=== PATIENT | male | born 1955 | race Caucasian/White ===

== ENCOUNTER 2016-05-15 13:05 | Observation (INO) | payer MEDICARE ==
[~2016-05-15] VITALS: Ht 172.7 cm; Wt 88.6 kg
[~2016-05-15 13:05] MED LIST: ALPR0.5T9 PO; ATEN25TA7 PO; LACL30 PO; LOR75 PO; Promethazine Inj 25 MG in Dextrose 5%-Pha MIX 50 ML IV PRN; QUET300T2 PO; SERXR300 PO; VITAMIN D PO
[2016-05-15 13:19] VITALS: BP 155/103; PULSE 133; RESP 24; O2SAT 97
--- NOTE | 2016-05-15 13:29 | ED.REPORT ---
HPI-Headache Date of Service May 15, 2016 ED Provider: Terence Ortiz DO 61 year old male presents to the ER via EMS complaining of 4 days of severe headache. Associated symptoms include "hot flashes", chills, nausea, vomiting, diarrhea, mild cough, and epigastric discomfort. Patient denies photophobia. Two weeks ago he had all of his teeth pulled, and reports residual mouth pain from the procedure. He regularly takes prescribed narcotics for chronic back pain, but recently ran out because he increased his dose after his dental procedure. Typically he has "a beer or two" daily, but reports that he has refrained from drinking for the past three days. Nursing Notes Stated Complaint: HEADACHE 4 DAYS Chief Complaint: Headache Nursing Notes Reviewed: Yes Allergies: Coded Allergies: No Known Allergies (Verified , 04/21/11) Scheduled ([Vitamin D]) 50,000 PO QW Atenolol-Expunged Drug, Do Not Renew! (Atenolol-Expunged Drug, Do Not Renew!) 25 Mg Tablet 25 MG PO DAILY pt unsure of dose/will bring in on adm. Hydrocod/APAP-Expunged, Do Not Renew! (VICODIN 7.5/300-Expunged Drug, Do Not Renew) 1 Ea Tablet 1 EA PO Q6 Take 1/2 tablet every 6 hours as needed for pain. Lactulose-Expunged Drug, Do Not Renew! (Cephalac-Expunged Drug, Do Not Renew!) 20 Gm/30 Ml Syrup 15 ML PO BID Take 15mL by mouth twice daily. QUEtiapine-Expunged Drug, Do Not Renew! (SEROquel-Expunged Drug, Do Not Renew!) 300 Mg Tablet 300 MG PO DAILY Quetiapine-Expunged Drug, Do Not Renew! (Seroquel XR-Expunged Drug, Do Not Renew !) 300 Mg Tab.sr.24h 300 MG PO DAILY Take 1/2 tablet (150mg) by mouth daily. Miscellaneous Medications Alprazolam-Expunged Drug, Do Not Renew! (Alprazolam-Expunged Drug, Do Not Renew! ) 0.5 Mg Tablet 1 MG PO Take 1/2 tablet (0.5mg) by mouth three times daily as needed for anxiety. General Time Seen by MD: 13:26 Chief Complaint Headache Hx Obtained From: Patient Arrived By: Ambulance Sudden in Onset?: No Onset Occurred: 4 days ago Symptom Duration: Since onset Location: : Generalized Quality: Painful Severity: Current: Severe Severity: Maximum: Severe Associated with: Reports: Nausea, Vomiting, Denies: Photophobia Similar Sx Previous: Yes Past Medical History Past Medical History Chronic back pain Headaches Denies: Diabetes mellitus, Hyperlipidemia Past Surgical History Reports: Hip replacement (bilateral) Smoking History Current Every Day Smoker Social History Alcohol Use: 1-3 per day Ambulatory Status Independent Review of Systems Constitutional: Reports: Chills Eyes: Denies: Photophobia Ears / Nose / Throat: Reports: Mouth pain GI: Reports: Abdominal pain, Diarrhea, Nausea, Vomiting Musculoskeletal: Denies: Back pain, Extremity pain, Joint pain, Lumbar pain, Neck pain, Thoracic pain Neurologic: Reports: Headache, Denies: Syncope, Vision change Complete sys rev & neg: except as marked. Respiratory: Reports: Non-productive cough Physical Exam Initial Vital Signs Vital Signs (First) Date Time Temp Pulse Resp B/P Pulse Ox O2 Delivery O2 Flow Rate FiO2 05/15/16 13:19 37.4 133 24 155/103 97 Room Air Initial VS: Reviewed Respiratory: Breath sounds normal, Clear to auscultation, No respiratory distress Abdomen / GI: Soft, Non-tender, No guarding, No rebound, No distention Extremities: Vascular intact, Neuro intact, No swelling, No tenderness Psychiatric: Mood/affect normal, Behavior normal, Normal thought content General/Constitutional: Awake, Alert, Well developed, Well nourished Head / Eyes: Atraumatic, Normocephalic Neck: Supple, No meningismus, Full range of motion, No swelling, Non-tender, No masses Neurologic: Oriented X3, Speech NL, No motor deficits, No sensory deficits Mildly tremulous. Cardiovascular: Regular rhythm, Heart sounds NL, No gallop, No murmurs, No rubs Heart Rate / Rhythm: Positive: Tachycardia Skin: Warm, Intact Color / Condition: Positive: Diaphoresis present Interpretation & Diagnostics Lab Results Interpretation Result Diagram: 05/15/16 1350 05/15/16 1350 Test 05/15/16 13:50 White Blood Count 17.6th/mm3 (3.8-10.1) Red Blood Count 5.43mil/mm3 (4.40-5.80) Hemoglobin 18.3g/dL (13.8-17.2) Hematocrit 52.4% (41.0-50.0) Mean Corpuscular Volume 96.5fL (81-100) Mean Corpuscular Hemoglobin 33.7pg (27.0-35.0) Mean Corpuscular Hemoglobin Concent 34.9% (32.0-37.0) Red Cell Distribution Width 13.1% (12.3-15.4) Platelet Count 335bil/L (150-400) Neutrophils (%) (Auto) 66.4% (40-74) Lymphocytes (%) (Auto) 22.5% (14-46) Monocytes (%) (Auto) 9.4% (4-12) Eosinophils (%) (Auto) 0.7% (0-5) Basophils (%) (Auto) 0.7% (0-3) Erythrocyte Sedimentation Rate 9mm/hr (0-30) Sodium Level 131mEq/L (134-144) Potassium Level 4.0mEq/L (3.5-5.2) Chloride Level 89mEq/L (97-108) Carbon Dioxide Level 21mmol/L (18-29) Blood Urea Nitrogen 14mg/dL (6-24) Creatinine 0.75mg/dL (0.76-1.27) Estimat Glomerular Filtration Rate 113mL/min (>59) Glucose Level 120mg/dL (60-99) Calcium Level 9.6mg/dL (8.5-10.1) Magnesium Level 2.4mg/dL (1.6-2.6) Total Bilirubin 0.8mg/dL (0.0-1.2) Aspartate Amino Transf (AST/SGOT) 37U/L (0-50) Alanine Aminotransferase (ALT/SGPT) 24U/L (0-44) Alkaline Phosphatase 67U/L (25-160) Troponin T < 0.010ug/L (0.0-0.011) Total Protein 8.8g/dL (6.4-8.4) Albumin 4.6g/dL (3.4-5.0) Lipase 18U/L (13-60) ECG Interpretation ECG Interpretation: Sinus tachycardia, rate 135 Time: 13:52 Interpreted by: ED physician X-Ray Chest Interpretation Chest Xray Interpretation: IMPRESSION: Appearance of increased vascularity, possibly software sales representative of edema. Dictated by: Georgette Koroma M.D. on 05/15/2016 at 14:13 Approved by: Georgette Koroma M.D. on 05/15/2016 at 14:13 View: Portable, 1 view Interpretation / Wet Read by: Interpret - Radiologist CT Head Interpretation IMPRESSION: 1. No acute intracranial abnormality. 2. Small region of encephalomalacia redemonstrated in the inferior left frontal lobe likely related to prior trauma. Dictated by: Lan Almanzar M.D. on 05/15/2016 at 15:09 Approved by: Lan Almanzar M.D. on 05/15/2016 at 15:13 Study: Head CT no contrast Interpretation / Wet Read by: Interpret - Radiologist Re-Eval/Medical Decision Med Decision/Clinical Course The patient appears septic and unclear etiology. Will need further delineation. Head CT obtained for headache. Care transferred to Rajiv Dyer Discharge & Departure Shift Change Sign-Out Patient Care Transferred: Yes Discussed Complaint(s): Yes Discharge Condition All VS Reviewed: Yes Condition: Stable Referrals: Kaushal Lee MD (PCP) Conner Cabrera MD (Family) Care Transferred to: Dr. Deyr Care Transferred at: 15:09 Inna Attestation Portions of this note were transcribed by Chary Celis. I, Dr. Ortiz, personally performed the history, physical exam and medical decision-making; I reviewed and confirmed the accuracy of the information in the transcribed note. Signed by: Inna Guerrier, 05/15/2016 and 15:18 copies to: Conner Cabrera MD; Kaushal Lee MD, Timothy S DO May 15, 2016 13:29 CHARY CELIS May 15, 2016 13:53
[2016-05-15] MEDS ORDERED: 0.9% Sodium Chloride 1,000 ML IV SCH ×3 (13:50→23:41)
[2016-05-15 14:04] LABS: Mean Corpuscular Volume 96.5 fL (81-100)
[2016-05-15 14:09] LABS: BASOPHILS % (AUTO) 0.7 % (0-3); EOSINOPHILS % (AUTO) 0.7 % (0-5); MONOCYTES % (AUTO) 9.4 % (4-12); Mean Corpuscular Hemoglobin 33.7 pg (27.0-35.0); NEUTROPHILS % (AUTO) 66.4 % (40-74); Platelet Count 335 bil/L (150-400)
--- NOTE | 2016-05-15 14:15 | DRSVH ---
PROCEDURE: X-RAY CHEST ONE VIEW, PORTABLE ([id number]) INDICATIONS: CP TECHNIQUE: One view of the chest was acquired. COMPARISON: [facility], , CHEST 1VW (PORTABLE), 04/22/2011, 6:26. FINDINGS: Surgical changes and devices: None. Lungs and pleura: There is a mild appearance of increased pulmonary vascularity. Mediastinum: Mediastinal contours appear normal. Heart size is normal. Bones and chest wall: No suspicious bony lesions. Overlying soft tissues appear unremarkable. IMPRESSION: Appearance of increased vascularity, possibly architectural representative of edema. Dictated by: Georgette Koroma M.D. on 05/15/2016 at 14:13 Approved by: Georgette Koroma M.D. on 05/15/2016 at 14:13
[2016-05-15 14:34] LABS: Magnesium 2.4 mg/dL (1.6-2.6)
[2016-05-15 14:50] VITALS: BP 140/99; PULSE 122; RESP 17; O2SAT 96
[2016-05-15 14:53] LABS: TROPONIN T < 0.010 ug/L (0.0-0.011)
--- NOTE | 2016-05-15 15:14 | DRSVH ---
PROCEDURE: CT BRAIN WITHOUT CONTRAST ([id number]) INDICATIONS: headache TECHNIQUE: Noncontrast 4.5 mm thick angled axial sections acquired from the foramen magnum to the vertex, with c oronal reformats. COMPARISON: [facility], CT, BRAIN W/O CONTRAST, 04/21/2011, 14:58. FINDINGS: Image quality: Excellent. CSF spaces: Basal cisterns are patent. No extra-axial fluid collections. There is mild cerebral vo lume loss with prominence of the ventricles and sulci. Brain: No intracranial hemorrhage, mass, or mass effect. There is a small region of encephalomalaci a in the inferior left frontal lobe redemonstrated likely representing sequelae of prior trauma. Mil d periventricular white matter hypodensities compatible with mild chronic small vessel ischemic story es. Skull and face: Calvarium and visualized facial bones are intact, without suspicious lesions. Sinuses: Visualized sinuses and mastoids are clear. IMPRESSION: 1. No acute intracranial abnormality. 2. Small region of encephalomalacia redemonstrated in the inferior left frontal lobe likely related to prior trauma. Dictated by: Lan Almanzar M.D. on 05/15/2016 at 15:09 Approved by: Lan Almanzar M.D. on 05/15/2016 at 15:13
[2016-05-15] MEDS ORDERED: Morphine ER 100 mg (MS Contin) Tablet PO ONE (15:20)
[2016-05-15 15:25] LABS: INR 1.01 ratio
[2016-05-15] MEDS ORDERED: Morphine ER 15 mg (MS Contin) Tablet PO ONE (15:40)
[2016-05-15] MEDS ORDERED: Promethazine 12.5 mg/50 mL-NS 12.5 MG in IV Premix 1 EACH IV ONE (15:55)
[2016-05-15] MEDS ORDERED: 0.9% Sodium Chloride 1,000 ML IV ONE (15:55)
[2016-05-15 16:46] VITALS: BP 156/95; PULSE 114; RESP 14
[2016-05-15] MEDS ORDERED: Bupivacaine-MPF 0.5% 30 mL Inj ONE (16:46)
[2016-05-15] MEDS ORDERED: cefTRIAXone Inj 2,000 MG in Dextrose 5% Minibag Plus 50 ML IV ONE (19:10)
[2016-05-15 19:24] VITALS: BP 136/82; PULSE 119; RESP 14; O2SAT 95
--- NOTE | 2016-05-15 19:24 | DRSVH ---
PROCEDURE: X-RAY LUMBAR PUNCTURE ([id number]) INDICATIONS: HEADACHE TECHNIQUE: The indications, alternatives, benefits, risks, and complications were explained to the patient. Elda liz informed consent was obtained and placed in the chart. The patient was placed in a prone positi on on the fluoroscopy table, and a level was chosen for percutaneous access under fluoroscopic guidan ce. The site was prepped and draped in a sterile fashion. After local anaesthetic, a spinal needle was then used to enter the intrathecal space, with return of cerebrospinal fluid. After obtaining sufficient fluid, the needle was then withdrawn, and a bandage applied to the punctur e site. FINDINGS: Puncture level: L5 Needle: Spinal needle. Opening pressure: Not requested. CSF volume and description: 14 cc bloody Medications: 1% lidocaine for anaesthesia. Complications: None Laboratories: As ordered by referring clinician. IMPRESSION: Successful fluoroscopically guided lumbar puncture. Dictated by: Georgette Koroma M.D. on 05/15/2016 at 19:22 Approved by: Georgette Koroma M.D. on 05/15/2016 at 19:23
[2016-05-15 20:55] LABS: APPEARANCE,CSF HAZY (CLEAR); COLOR,CSF PINK (COLORLESS); WHITE BLOOD CELL,CSF 0 /mm3 (0-5)
[2016-05-15] MEDS ORDERED: Promethazine Inj 25 MG in Dextrose 5%-Pha MIX 50 ML IV ONE (22:50)
[2016-05-15] MEDS ORDERED: Famotidine Inj 20 MG in IV Premix 1 EACH IV ONE (22:50)
[2016-05-15 23:18] VITALS: BP 134/69; PULSE 109; RESP 19; O2SAT 96
[2016-05-15] MEDS ORDERED: Promethazine Inj 25 MG in Dextrose 5%-Pha MIX 50 ML IV PRN (23:45)
[2016-05-15] MEDS ORDERED: Ondansetron 2 mg/mL 2 mL Inj IVPUSH PRN ×2 (23:45)
[2016-05-15] MEDS ORDERED: Alum-Mag Hydrox-Simeth 30 mL Suspension PO PRN (23:45)
[2016-05-16] VITALS (7 sets, daily range): BP systolic 110–138; BP diastolic 76–89; PULSE 80–112; RESP 14–18; O2SAT 93–97
[2016-05-16] MEDS ORDERED: bupropion PO (00:27)
[2016-05-16] MEDS ORDERED: mirtazapine PO (00:29)
[2016-05-16] MEDS ORDERED: QUET200T PO (00:30)
[2016-05-16] MEDS ORDERED: OXYC5TAB72 PO (00:31)
[2016-05-16] MEDS ORDERED: morphine PO (00:32)
--- NOTE | 2016-05-16 00:33 | NUR ---
Med Rec Patient poor historian. Verified pharmacy is still [facility] in [place] and entered as much information as patient able to recall. Sending fax to pharmacy for updated list in morning. Confirmed no longer taking Alprazolam/Atenolol/Lactulose. Unsure of dose for Bupropion/Mirtazapine. Verified Seroquel went from 300mg to 200mg.
--- NOTE | 2016-05-16 00:36 | NUR ---
Admit to room 3008 with Intractable Headache/Nausea. VS 153/68, 93% O2 on RA. Pain 10/10 on arrival to floor. Oriented to room and poc on whiteboard. Bedalarm and no-slip socks on for safety.
--- NOTE | 2016-05-16 02:13 | NUR ---
Pain reported as 10/10 on transfer to floor, however appears to be asleep and snoring after admin of 975mg Acetaminophen.
--- NOTE | 2016-05-16 03:16 | PCM.HPMED ---
Subjective Date of Service May 16, 2016 Primary Provider: Admitting Physician: Natalie Gibson DO Primary Care Physician: Bijan Attending Physician: Natalie Gibson DO Admit Status: From the Emergency Department Chief Complaint: Severe Headache pain for past 4 days History of Present Illness: This is a 61 Y/O M with hx of chronic frontal headaches, and chronic back pain on morphine 15 mg time release 3 times a day, and Percocet 5-325 mg every 4 hours, who presented to the ED with complaint of 4 days of severe headache, associated with "hot flashes", sweats, nausea, vomiting X 12 in the past 3 days , diarrhea, mild cough (patient is a smoker). Two weeks ago he had all of his teeth pulled and now is edentulous. He reports residual mouth pain from the procedure. Patient stated he increased his daily dose of opiate medication to help with the dental pain, and has since run out 4 days or so ago. Patient states that this headache is different than his prior headache history in that is much more severe. Patient states however that the headache is located in the same area frontal region as his prior headaches have been. Describes pain as 10 out of 10 at its worst and sharp. When asked patient states that he believes is at the [facility]. Patient denies fever, chills, constipation, dysuria, hematuria, hematochezia, abdominal pain, sore throat, stuffiness. In the ED: Patient had lumbar puncture which showed hazy appearing cerebral spinal fluid and can color likely traumatic tap, [address] RBCs, glucose 72, protein 91. Patient received IV Tylenol 975 mg once, IV diazepam 5 mg, IV Midazolam 2 mg, IV lorazepam 1 mg, Roxicodone 5 mg by mouth once, MS Contin 15 mg by mouth once , promethazine IV once, and ceftriaxone 2 g once, Seroquel 200 mg once by mouth , and Benadryl 25 mg once IV. Temperature 37.4, pulse 133, blood pressure 155/103, respirations 24, 97% on room air Repeat vital signs: Temperature 36.7, pulse 112, blood pressure 118/78, respiratory rate 16, 95% room air. Hemogram: Showed white blood cell count 17.6, hemoglobin 18.3, hematocrit 52.4, platelets 335, neutrophils percent 66.4. Chemistry panel: Sodium 131, potassium 4.0, chloride 89, CO2 21, creatinine 0.75 , glucose 120, lactic acid 2.0, troponin 0.010, otherwise normal chemistry panel PT/INR 10.8/1.01, Patient had cerebral spinal fluid viral PCR panel that returned all negative. Flu swab was negative for influenza A/B CT brain showed no acute intracranial abnormality, small region of encephalomalacia re-demonstrated in the inferior left frontal lobe likely related to prior trauma. Chest x-ray: Appearance of increased vascularity possibly outside sales representative of edema Review of Systems: A comprehensive review of systems was conducted and was negative except as mentioned in history of present illness. Allergies Coded Allergies: No Known Allergies (Verified , 04/21/11) Home Medications Patient's med rec does not match what patient states he is taking. Will need to verify in the morning patient's appropriate medications. We will hold all medications until verified by pharmacy. Morphine 15 mg time release twice a day Percocet 5/325 mg every 4 hours PMH Chronic back pain Headaches Surgical History Recently had all of his teeth pulled Hip replacement (bilateral) Family History Alzheimer's disease, mom, aunt, uncle, grandfather Social History Hx Alcohol Use: Yes (1-2 BEER/DAY) Hx Substance Use: No Hx Tobacco Use: Yes (pack per day 25 years) Smoking Status: Current Every Day Smoker Exam Vital Signs Vital Sign - Last Date Time Temp Pulse Resp B/P Pulse Ox O2 Delivery O2 Flow Rate FiO2 05/16/16 00:27 36.7 112 16 118/78 95 Room Air Intake and Output 05/15/16 05/15/16 05/16/16 Cumulative From/Thru 15:00 23:00 07:00 05/15/16 13:19 - 05/16/16 00:27 Intake Total 100 ml 100 ml Output Total 250 ml 250 ml Balance -150 ml -150 ml Intake IV Total 100 ml 100 ml Output Urine Total 250 ml 250 ml # Voids 1 1 Exam General: Patient is alert and oriented 2 with regard to person and time, in no acute distress, sleeping in bed, but arouses and speaking in full sentences when prompted HEENT: NC/AT, eyes, PERRLA, EOMI, pupils dilated, neck, soft supple, no adenopathy, no JVD, no masses, no thyromegaly, throat mucous membranes pink and moist Lungs: CTAB all khan, no wheezes, no rhonchi, no crackles, no adventitious lung sounds, no use of accessory muscles of respiration, good air movement, good respiratory effort. Heart: Tachycardia (regular rhythm, no murmur, S1-S2 present, no rub, no click, no distant heart sounds, Abdomen: Protuberant, soft, nontender, nondistended, bowel sounds hyperactive, no rebound, no guarding, Genitourinary: No CVA tenderness, no suprapubic tenderness. Extremities: pulses rapid, equal and symmetric upper/lower extremity including radial and dorsalis pedis, no edema Neurologic: Grossly neurologically intact, speaking in full sentences, no focal neurological signs. Patient is somnolent Skin: Clammy/diaphoretic/moist Psychiatric: Mood affect are congruent and appropriate. Patient is pleasant Lab and Diagnostics Result Diagram: 05/15/16 1350 05/15/16 1350 X-Rays, CTs and MRIs Date of Service: 05/15/16 1349 PROCEDURE: CT BRAIN WITHOUT CONTRAST ([id number]) INDICATIONS: headache CSF spaces: Basal cisterns are patent. No extra-axial fluid collections. There is mild cerebral volume loss with prominence of the ventricles and sulci. Brain: No intracranial hemorrhage, mass, or mass effect. There is a small region of encephalomalacia in the inferior left frontal lobe redemonstrated likely representing sequelae of prior trauma. Mild periventricular white matter hypodensities compatible with mild chronic small vessel ischemic changes. Skull and face: Calvarium and visualized facial bones are intact, without suspicious lesions. Sinuses: Visualized sinuses and mastoids are clear. IMPRESSION: 1. No acute intracranial abnormality. 2. Small region of encephalomalacia redemonstrated in the inferior left frontal lobe likely related to prior trauma. Dictated by: Lan Almanzar M.D. on 05/15/2016 at 15:09 Approved by: Lan Almanzar M.D. on 05/15/2016 at 15:13 Date of Service: 05/15/16 1342 PROCEDURE: X-RAY CHEST ONE VIEW, PORTABLE ([id number]) INDICATIONS: CP FINDINGS: Surgical changes and devices: None. Lungs and pleura: There is a mild appearance of increased pulmonary vascularity. Mediastinum: Mediastinal contours appear normal. Heart size is normal. Bones and chest wall: No suspicious bony lesions. Overlying soft tissues appear unremarkable. IMPRESSION: Appearance of increased vascularity, possibly outside sales representative of edema. Dictated by: Georgette Koroma M.D. on 05/15/2016 at 14:13 Approved by: Georgette Koroma M.D. on 05/15/2016 at 14:13 Assessment & Plan 61-year-old male with history of chronic headache and chronic back pain on chronic opiate medication who recently ran out of his opiate medication and presented to the ED complaining of 4 days of severe headaches located in the frontal region. Patient was admitted for severe headache and acute withdrawal symptoms. # Acute onset severe intractable headache pain, present on admission, active - Patient received IV Tylenol 975 mg once, IV diazepam 5 mg, IV Midazolam 2 mg, IV lorazepam 1 mg, Roxicodone 5 mg by mouth once, MS Contin 15 mg by mouth once , promethazine IV once, and ceftriaxone 2 g once, Seroquel 200 mg once by mouth , and Benadryl 25 mg once IV. - Patient rates headache pain as 10 over 10 at its worst located frontally and sharp in quality, currently reported as 7/10 while sleeping in bed - Likely rebound headache secondary to opiate withdrawal. - Patient had CT brain which showed no acute process. - IV fluids with normal saline as needed to maintain blood pressures. - IV Tylenol for headache pain - IV lorazepam 0.5-1 mg every 4 hours when necessary - By mouth Roxicodone every 4 hours when necessary # Opioid withdrawal, presently in remission, active - Patient has signs and symptoms of withdrawal including tachycardia, dilated pupils, diaphoresis and hot flashes, rebound headache, nausea, vomiting, diarrhea - IV lorazepam 0.5-1 mg every 4 hours when necessary - By mouth Roxicodone every 4 hours when necessary - We will continue to monitor - Symptomatic relief - Patient's med rec does not match what patient states he is taking. Will need to verify in the morning patient's appropriate medications. We will hold all medications until verified by pharmacy. # Tachycardia, acute, present on admission, active - Heart rate 112 - Likely secondary to opiate withdrawal - SIRS criteria, heart rate 112, her blood cell count 17.6, tachypneic at a rate of 24 on admit - Possible source could be his dental extraction # Leukocytosis, chronicity unknown, present on admission, active - Received received Ceftriaxone 2 g once in the emergency department - Patient had lumbar puncture which showed hazy appearing cerebral spinal fluid and pink color, [address]326 RBCs, glucose 72, protein 91. - CBC 17.6 - Patient had cerebral spinal fluid viral PCR panel that returned all negative. - Flu swab was negative for influenza A/B - CT brain showed no acute intracranial abnormality, small region of encephalomalacia redemonstrated in the inferior left frontal lobe likely related to prior trauma. - Chest x-ray: Appearance of increased vascularity possibly outside sales representative of edema - Possible source of infection could be dental extraction - We will continue to monitor with morning labs CBC CMP - Continue ceftriaxone for now # Hypochloremic hyponatremia, present on admission, active - Sodium 131, chloride 89 - IV fluids with normal saline 100 ml per hour - We will monitor # Hyperglycemia - Glucose 120 - Hemoglobin A1c - We will continue to monitor Chronic problems Chronic back pain - Patient recently ran out of his opioid medication 4 days ago secondary to use increasing his own dose for oral pain after dental procedure. Headaches Disposition: Admitted to in patient service with expected length of stay greater than 2 days, secondary to severity of presenting symptoms, treatment plan, complexity of clinical work up, and risk of adverse events. CODE STATUS: Full code PCP: Dr. Castano [facility] DVT PE prophylaxis: SubQ heparin Q8H Contact: Pain Evaluation: Adequate Pain Control VTE Prophylaxis: Sub-Q Heparin (Unfractionated) Resuscitation Status: CPR: Attempt Resuscitation Attending Statement The patient was seen and examined together with house staff on 05/15/2016 and I agree with the history, exam and plan as outlined in the note above. Giovanny Amaya DO May 16, 2016 02:09 Natalie Gibson DO May 16, 2016 05:45
[2016-05-16] MEDS ORDERED: Acetaminophen IV 1,000 MG in IV Premix 1 EACH IV PRN (03:20)
[2016-05-16] MEDS: 0.9% Sodium Chloride 1,000 ML IV SCH ×2 (03:20→12:57)
[2016-05-16] MEDS ORDERED: Polyethylene Glycol (PEG) 17 Gm Powder PO PRN (03:20)
[2016-05-16] MEDS ORDERED: Ondansetron 2 mg/mL 2 mL Inj IVPUSH PRN (03:20)
[2016-05-16] MEDS ORDERED: Alum-Mag Hydrox-Simeth 30 mL Suspension PO PRN (03:20)
[2016-05-16 06:45] LABS: BASOPHILS % (AUTO) 0.8 % (0-3); EOSINOPHILS % (AUTO) 2.2 % (0-5); MONOCYTES % (AUTO) 11.8 % (4-12); Mean Corpuscular Hemoglobin 34.2 pg (27.0-35.0); Mean Corpuscular Volume 99.3 fL (81-100); NEUTROPHILS % (AUTO) 44.9 % (40-74); Platelet Count 217 bil/L (150-400)
[2016-05-16] MEDS: Heparin 5,000 Unit/mL Inj SUBQ SCH ×2 (07:43→17:27)
--- NOTE | 2016-05-16 10:13 | NUR ---
Social Work: Screening Data: Pt is a 61 y/o male admitted for intractable headache/nausea/tachycardia. Pt's PCP is not listed, pt's insurance is [employer]. EMR reviewed. Pt's readmit score is not listed. Per H&P, pt states he drinks 1-2 beers per day, likely no need for CD assessment. No d/c planning needs anticipated at this time. CHIEF LEARNING OFFICER will continue to follow if needs arise. Assessment: Pt who is independent at baseline. Plan: Pt will d/c home via POV when medically stable. No d/c planning needs anticipated at this time. CHIEF LEARNING OFFICER will continue to follow if needs arise. RICA Quinn
--- NOTE | 2016-05-16 14:51 | NUR ---
LETHA explained and signed, copy given
--- NOTE | 2016-05-16 14:55 | NUR ---
Pain/Anxiety Patient had complaints of ranging from 9-10/10 pain to lower back and to head. Patient was administered Oxycodone 5mg PRN for pain. Patient became anxious and asked for Alprazolam for anxiety. Patient did not have that medication ordered, but did have ativan ordered and was administered 1 mg Ativan for anxiety and was effective.
--- NOTE | 2016-05-16 15:51 | PCM.PNMED ---
Subjective Date of Service May 16, 2016 Subjective Patient notes headache is significantly improved, down nearly 50 or 60% in intensity from admission. His present almost a bandlike distribution above eyes and frontal regions, he had noted previous photosensitivity but that has resolved. Has has blurry vision. Any nausea or vomiting currently, he has not had much of an appetite since its resolution and has a eaten little. Has a chest pain shortness of breath palpitations sweats chills or other complaints at this time Exam Vital Signs Vital Sign - Last Date Time Temp Pulse Resp B/P Pulse Ox O2 Delivery O2 Flow Rate FiO2 05/16/16 10:18 80 05/16/16 10:06 36.7 16 121/80 95 Room Air Intake and Output 05/15/16 05/15/16 05/16/16 Cumulative From/Thru 15:00 23:00 07:00 05/15/16 13:19 - 05/16/16 00:27 Intake Total 100 ml 100 ml Output Total 250 ml 250 ml Balance -150 ml -150 ml IV Total 100 ml 100 ml Output Urine Total 250 ml 250 ml # Voids 1 1 General: Alert, Oriented X3, Cooperative, Mild Distress, Other (mildly disheveled) Eyes: PERRLA, EOMI Mouth: Mucous Membr Moist/[place], Other (no teeth due to multiple extractions) Chest & Lungs: Clear to auscultation & percussion Cardiovascular: Regular Rate/Rhythm, Other (frequent PVCs) Abdomen: Non-tender, Non-distended Extremities: No cyanosis/clubbing/edma bilat Neurological: Grossly Neurologically Intact IVs and Medications Medications Reviewed: Medications were reviewed in detail Lab and Diagnostics Result Diagram: 05/16/1660405/16/16 0605 X-Rays, CTs and MRIs Date of Service: 05/15/16 1349 PROCEDURE: CT BRAIN WITHOUT CONTRAST ([id number]) INDICATIONS: headache CSF spaces: Basal cisterns are patent. No extra-axial fluid collections. There is mild cerebral volume loss with prominence of the ventricles and sulci. Brain: No intracranial hemorrhage, mass, or mass effect. There is a small region of encephalomalacia in the inferior left frontal lobe redemonstrated likely representing sequelae of prior trauma. Mild periventricular white matter hypodensities compatible with mild chronic small vessel ischemic changes. Skull and face: Calvarium and visualized facial bones are intact, without suspicious lesions. Sinuses: Visualized sinuses and mastoids are clear. IMPRESSION: 1. No acute intracranial abnormality. 2. Small region of encephalomalacia redemonstrated in the inferior left frontal lobe likely related to prior trauma. Dictated by: Lan Almanzar M.D. on 05/15/2016 at 15:09 Approved by: Lan Almanzar M.D. on 05/15/2016 at 15:13 Date of Service: 05/15/16 1342 PROCEDURE: X-RAY CHEST ONE VIEW, PORTABLE ([id number]) INDICATIONS: CP FINDINGS: Surgical changes and devices: None. Lungs and pleura: There is a mild appearance of increased pulmonary vascularity. Mediastinum: Mediastinal contours appear normal. Heart size is normal. Bones and chest wall: No suspicious bony lesions. Overlying soft tissues appear unremarkable. IMPRESSION: Appearance of increased vascularity, possibly employment program representative of edema. Dictated by: Georgette Koroma M.D. on 05/15/2016 at 14:13 Approved by: Georgette Koroma M.D. on 05/15/2016 at 14:13 Assessment & Plan 61-year-old male with history of chronic headache and chronic back pain on chronic opiate medication who recently ran out of his opiate medication and presented to the ED complaining of 4 days of severe headaches located in the frontal region. Patient was admitted for severe headache and acute withdrawal symptoms. # Acute onset severe intractable headache pain, present on admission, active - Patient received IV Tylenol 975 mg once, IV diazepam 5 mg, IV Midazolam 2 mg, IV lorazepam 1 mg, Roxicodone 5 mg by mouth once, MS Contin 15 mg by mouth once , promethazine IV once, and ceftriaxone 2 g once, Seroquel 200 mg once by mouth , and Benadryl 25 mg once IV. - Patient rates headache pain as 10 over 10 at its worst located frontally and sharp in quality, currently demonstrating significant improvement - Likely rebound headache secondary to opiate withdrawal. _ Recent prescribing records reviewed, the patient is taking opiates inappropriately he does seem to have been prescribed the stated doses of MS Contin as well as oxycodone over the past several months by primary care doctor which does confirm history. - Patient had CT brain which showed no acute process. - IV fluids with normal saline as needed to maintain blood pressures. - IV Tylenol for headache pain - IV lorazepam 0.5-1 mg every 4 hours when necessary - By mouth Roxicodone every 4 hours when necessary, in addition to MS Contin started now to twice a day dosing instead of 3 times a day as he had been taking previously. # Opioid withdrawal, presently in remission, active - Patient has signs and symptoms of withdrawal including tachycardia, dilated pupils, diaphoresis and hot flashes, rebound headache, nausea, vomiting, diarrhea - IV lorazepam 0.5-1 mg every 4 hours when necessary - By mouth Roxicodone every 4 hours when necessary - We will continue to monitor - Symptomatic relief # Tachycardia, acute, present on admission, active - Heart rate 112, rate improved some averaging around 100 bpm during my examination. - Likely secondary to opiate withdrawal vs pain. # Leukocytosis, chronicity unknown, present on admission, active - Received received Ceftriaxone 2 g once in the emergency department - Patient had lumbar puncture which showed hazy appearing cerebral spinal fluid and pink color, [address] RBCs, glucose 72, protein 91. - CBC 17.6 - Patient had cerebral spinal fluid viral PCR panel that returned all negative. - Flu swab was negative for influenza A/B - CT brain showed no acute intracranial abnormality, small region of encephalomalacia redemonstrated in the inferior left frontal lobe likely related to prior trauma. - Chest x-ray: Appearance of increased vascularity possibly employment program representative of edema - Possible source of infection could be dental extraction - We will continue to monitor with morning labs CBC CMP - Continue ceftriaxone for now, plan to discontinue with negative blood cultures if no other evidence of infection is demonstrated # Hypochloremic hyponatremia, present on admission, active - Sodium 131, chloride 89 - IV fluids with normal saline 100 ml per hour - We will monitor # Hyperglycemia - Glucose 120 - Hemoglobin A1c - We will continue to monitor Pain Evaluation: Adequate Pain Control VTE Prophylaxis: Sub-Q Heparin (Unfractionated) Resuscitation Status: CPR: Attempt Resuscitation Time spent 30 minutes Giovanny Mixon DO May 16, 2016 15:51
[2016-05-16] MEDS ORDERED: cefTRIAXone Inj 2,000 MG in Dextrose 5% Minibag Plus 50 ML IV SCH (20:00)
[2016-05-16] MEDS: Morphine ER 15 mg (MS Contin) Tablet PO SCH (20:08)
[2016-05-16] MEDS ORDERED: TIZA2CAP9 PO (22:04)
[2016-05-16] MEDS ORDERED: TIZA2TAB3 PO (22:04)
[2016-05-16] MEDS ORDERED: TAMS0.4C98 PO (22:04)
[2016-05-16] MEDS ORDERED: PRAZ2CAP2 PO (22:04)
[2016-05-16] MEDS ORDERED: ONDA-53 PO ×2 (22:04)
[2016-05-17] MEDS: 0.9% Sodium Chloride 1,000 ML IV SCH ×2 (00:21→09:20)
[2016-05-17] MEDS: Heparin 5,000 Unit/mL Inj SUBQ SCH ×2 (00:21→08:30)
--- NOTE | 2016-05-17 04:19 | NUR ---
O2 Saturation Continuous pulse oximetry intermittent desaturation to mid 80's during night. Instructed to cough and deep breath. However placed on 1L O2 when this was not effective. Addendum: 05/17/16 at 0422 by JOE WALLACE Now maintaining 95% O2
[2016-05-17 05:41] LABS: BASOPHILS % (AUTO) 1.4 % (0-3); EOSINOPHILS % (AUTO) 3.4 % (0-5); MONOCYTES % (AUTO) 11.3 % (4-12); Mean Corpuscular Hemoglobin 33.6 pg (27.0-35.0); Mean Corpuscular Volume 99.5 fL (81-100); NEUTROPHILS % (AUTO) 43.7 % (40-74); Platelet Count 213 bil/L (150-400)
[2016-05-17 05:43] VITALS: BP 136/78; PULSE 93; RESP 18; O2SAT 98
[2016-05-17] MEDS: Morphine ER 15 mg (MS Contin) Tablet PO SCH (08:30)
[2016-05-17] MEDS ORDERED: MORP-32 PO (10:20)
[2016-05-17] MEDS ORDERED: OXYC5TAB72 PO (10:20)
--- NOTE | 2016-05-17 10:25 | PCM.DIMED ---
Discharge Instructions Date of Service May 17, 2016 Dates of Hospitalization May 15, 2016 at 23:15 Discharge Diagnosis Discharge Diagnosis # Acute onset severe intractable headache pain, present on admission,Resolved # Opioid withdrawal, presently in remission, Resolved # Tachycardia, acute, present on admission, Resolved # Leukocytosis, chronicity unknown, present on admission, Resolved # Hypochloremic hyponatremia, present on admission, Resolved # Hyperglycemia; # Nocturnal hypoxia/ Possible Sleep Apnea. Present on discharge, further evaluation needed. Diet No restrictions Activity No restrictions Call your provider Fever or Chills, Shortness of breath, Chest pain Patient Instructions Follow-up plan Rene Castano in 1 week for refill of controlled medications. Follow-up with PCP in: 1 week Giovanny Mixon DO May 17, 2016 10:25
[2016-05-17 10:44] VITALS: BP 142/83; PULSE 87; RESP 20; O2SAT 95
--- NOTE | 2016-05-17 11:44 | NUR ---
Discharge Patient given discharge orders. Patient given medication list with written and verbal instruction when next dose is due. Patient IV removed fully intact and asymptomatic. Patient given hard copy of prescriptions. Patient given follow up care information. Patient reminded to leave with all personal belongings. Patient waiting for case management to talk with him about transportation home. Addendum: 05/17/16 at 1518 by VIANNEY OSBORN RN Aristides was called and will meet patient at main entrance at 1134.
--- NOTE | 2016-05-17 14:04 | PCM.PNMED ---
Subjective Date of Service May 17, 2016 Subjective Patient is feeling much improved today since presentation, slept well overnight , much back to his old self. Dental pain for which she had taken an excessive amount of his opiates causing to run out prematurely, as reduced and is now well controlled on home dosing of long and short acting medications. No other acute complaints at this time, he may be ready for discharge home but does not have a ride. Exam Vital Signs Vital Sign - Last Date Time Temp Pulse Resp B/P Pulse Ox O2 Delivery O2 Flow Rate FiO2 05/17/16 10:44 36.8 87 20 142/83 95 Room Air Intake and Output 05/16/16 05/16/16 05/17/16 Cumulative From/Thru 15:00 23:00 07:00 05/15/16 13:19 - 05/17/16 06:54 Intake Total 1036 ml 1028 ml 1763 ml 3927 ml Output Total 250 ml Balance 1036 ml 1028 ml 1763 ml 3677 ml Intake Oral 210 ml 518 ml 736 ml 1464 ml IV Total 826 ml 510 ml 1027 ml 2463 ml Output Urine Total 250 ml # Voids 2 2 2 7 # Bowel Movements 0 0 Exam General: Alert, Oriented X3, Cooperative, Mild Distress, Other (mildly disheveled) Eyes: PERRLA, EOMI Mouth: Mucous MembrANES Moist/[place], Other (no teeth due to multiple extractions ) Chest & Lungs: Clear to auscultation & percussion Cardiovascular: Regular Rate/Rhythm, Other (frequent PVCs) Abdomen: Non-tender, Non-distended Extremities: No cyanosis/clubbing/edema bilat Neurological: Grossly Neurologically Intact IVs and Medications Medications Reviewed: Medications were reviewed in detail Lab and Diagnostics Result Diagram: 05/17/1651905/17/16519 X-Rays, CTs and MRIs Date of Service: 05/15/16 9379 PROCEDURE: CT BRAIN WITHOUT CONTRAST ([id number]) INDICATIONS: headache CSF spaces: Basal cisterns are patent. No extra-axial fluid collections. There is mild cerebral volume loss with prominence of the ventricles and sulci. Brain: No intracranial hemorrhage, mass, or mass effect. There is a small region of encephalomalacia in the inferior left frontal lobe redemonstrated likely representing sequelae of prior trauma. Mild periventricular white matter hypodensities compatible with mild chronic small vessel ischemic changes. Skull and face: Calvarium and visualized facial bones are intact, without suspicious lesions. Sinuses: Visualized sinuses and mastoids are clear. IMPRESSION: 1. No acute intracranial abnormality. 2. Small region of encephalomalacia redemonstrated in the inferior left frontal lobe likely related to prior trauma. Dictated by: Lan Almanzar M.D. on 05/15/2016 at 15:09 Approved by: Lan Almanzar M.D. on 05/15/2016 at 15:13 Date of Service: 05/15/16 1342 PROCEDURE: X-RAY CHEST ONE VIEW, PORTABLE ([id number]) INDICATIONS: CP FINDINGS: Surgical changes and devices: None. Lungs and pleura: There is a mild appearance of increased pulmonary vascularity. Mediastinum: Mediastinal contours appear normal. Heart size is normal. Bones and chest wall: No suspicious bony lesions. Overlying soft tissues appear unremarkable. IMPRESSION: Appearance of increased vascularity, possibly business office representative of edema. Dictated by: Georgette Koroma M.D. on 05/15/2016 at 14:13 Approved by: Georgette Koroma M.D. on 05/15/2016 at 14:13 Assessment & Plan 61-year-old male with history of chronic headache and chronic back pain on chronic opiate medication who recently ran out of his opiate medication and presented to the ED complaining of 4 days of severe headaches located in the frontal region. Patient was admitted for severe headache and acute withdrawal symptoms. # Acute onset severe intractable headache pain, present on admission, resolved - Patient received IV Tylenol 975 mg once, IV diazepam 5 mg, IV Midazolam 2 mg, IV lorazepam 1 mg, Roxicodone 5 mg by mouth once, MS Contin 15 mg by mouth once , promethazine IV once, and ceftriaxone 2 g once, Seroquel 200 mg once by mouth , and Benadryl 25 mg once IV. - Patient rates headache pain as 10 over 10 at its worst located frontally and sharp in quality, currently demonstrating significant improvement - Likely rebound headache secondary to opiate withdrawal. _ Recent prescribing records reviewed, the patient is taking opiates inappropriately he does seem to have been prescribed the stated doses of MS Contin as well as oxycodone over the past several months by primary care doctor which does confirm history. - Patient had CT brain which showed no acute process. - IV fluids with normal saline as needed to maintain blood pressures. - IV Tylenol for headache pain - IV lorazepam 0.5-1 mg every 4 hours when necessary - By mouth Roxicodone every 4 hours when necessary, in addition to MS Contin started now to twice a day dosing after confirming dosing provided by outpatient doctor. # Opioid withdrawal, presently in remission, active - Patient has signs and symptoms of withdrawal including tachycardia, dilated pupils, diaphoresis and hot flashes, rebound headache, nausea, vomiting, diarrhea - IV lorazepam 0.5-1 mg every 4 hours when necessary, though does not appear needed any more given her response to resumption of chronic opiate therapy. - By mouth Roxicodone every 4 hours when necessary, in addition to restarting long-acting opiate - We will continue to monitor # Tachycardia, acute, present on admission, active - Heart rate 112, rate improved some averaging around 100 bpm during my examination. - Likely secondary to opiate withdrawal vs pain. # Leukocytosis, chronicity unknown, present on admission, active - Received received Ceftriaxone 2 g once in the emergency department - Patient had lumbar puncture which showed hazy appearing cerebral spinal fluid and pink color, [address] RBCs, glucose 72, protein 91. - CBC 17.6 - Patient had cerebral spinal fluid viral PCR panel that returned all negative. - Flu swab was negative for influenza A/B - CT brain showed no acute intracranial abnormality, small region of encephalomalacia redemonstrated in the inferior left frontal lobe likely related to prior trauma. - Chest x-ray: Appearance of increased vascularity possibly business office representative of edema - Possible source of infection could be dental extraction - We will continue to monitor with morning labs CBC CMP - Continue ceftriaxone for now, plan to discontinue with negative blood cultures if no other evidence of infection is demonstrated # Hypochloremic hyponatremia, present on admission, active - Sodium 131, chloride 89 - IV fluids with normal saline 100 ml per hour - We will monitor # Hyperglycemia - Glucose 120 - Hemoglobin A1c - We will continue to monitor Disposition: Patient would be stable for home discharge today however transportation is an issue, given his recent stabilization 1 further day of observation in hospital is not unreasonable. Discharge home tomorrow with short course of opiates to bridge until he can follow-up with primary care doctor, likely discontinuation of antibiotics with negative blood cultures. Pain Evaluation: Adequate Pain Control VTE Prophylaxis: Sub-Q Heparin (Unfractionated) VTE Mechanical Devices: Intermittant Pneumatic CD Resuscitation Status: CPR: Attempt Resuscitation Time spent 30 minute Giovanny Mixon DO May 17, 2016 14:04
[2016-05-17 14:30] VITALS: BP 145/98; PULSE 97; RESP 20; O2SAT 95
--- NOTE | 2016-05-17 15:18 | NUR ---
Social Work: Initial Assessment / Discharge Data: Pt is a 61 y/o male admitted for intractable headache/nausea/tachycardia. Pt's PCP is Dr Gibson. Pt's insurance is [employer]. EMR reviewed. Pt readmit score is 2, low. MARKING ROOM SUPERVISOR met with pt at bedside, role explained. Pt states that he lives on [address] in a single story home where he uses a walker at baseline. Pt has no hx of HH or SNF, no LTC or VA benefits and is not a caregiver. Pt accepted AD/DPOA information, he does not have one currently. D/C orders are in. Pt states he has no way to get home today. MARKING ROOM SUPERVISOR encouraged pt to call anyone he can think of for this, pt states he does not have anyone to call. MARKING ROOM SUPERVISOR told pt she could call a cab for him, pt states that he does not have money for this and does not have a credit card. Pt states he typically uses the [employer] bus but they do not go to [place] on Sundays. MARKING ROOM SUPERVISOR confirmed this on the [employer] website. Pt does not have Medicaid for possible medicaid transportation. MARKING ROOM SUPERVISOR received permission by MARKING ROOM SUPERVISOR restaurant shift supervisor for hospital to pay for pt's cab ride home. MARKING ROOM SUPERVISOR called [employer] and set up transportation for 3:45pm. MARKING ROOM SUPERVISOR notified RN. No further d/c planning needs at this time. MARKING ROOM SUPERVISOR will continue to follow if needs arise. Assessment: Pt who is independent at baseline. Plan: Pt will d/c home via taxi, [email or web address] [phone], at 3:45pm. No further d/c planning needs at this time. MARKING ROOM SUPERVISOR will continue to follow if needs arise. RICA Quinn Addendum: 05/17/16 at 1525 by VIKY CARDOSO Amended: Links added.
--- NOTE | 2016-05-17 18:56 | PCM.DC.MED ---
Discharge Summary Date of Service May 17, 2016 Dates of Hospitalization Date of Hospital Admission May 15, 2016 at 23:15 Date of Discharge: May 17, 2016 Providers: Admitting Physician: Natalie Gibson DO Primary Care Physician: Nopjelena Attending Physician: Natalie Gibson DO Diagnosis at Time of Discharge Diagnosis at Time of Discharge # Acute onset severe intractable headache pain, present on admission,Resolved # Opioid withdrawal, presently in remission, Resolved # Tachycardia, acute, present on admission, Resolved # Leukocytosis, chronicity unknown, present on admission, Resolved # Hypochloremic hyponatremia, present on admission, Resolved # Hyperglycemia; # Nocturnal hypoxia/ Possible Sleep Apnea. Present on discharge, further evaluation needed. Procedures XRay, CTs & MRIs Date of Service: 05/15/16 1349 PROCEDURE: CT BRAIN WITHOUT CONTRAST ([id number]) INDICATIONS: headache CSF spaces: Basal cisterns are patent. No extra-axial fluid collections. There is mild cerebral volume loss with prominence of the ventricles and sulci. Brain: No intracranial hemorrhage, mass, or mass effect. There is a small region of encephalomalacia in the inferior left frontal lobe redemonstrated likely representing sequelae of prior trauma. Mild periventricular white matter hypodensities compatible with mild chronic small vessel ischemic changes. Skull and face: Calvarium and visualized facial bones are intact, without suspicious lesions. Sinuses: Visualized sinuses and mastoids are clear. IMPRESSION: 1. No acute intracranial abnormality. 2. Small region of encephalomalacia redemonstrated in the inferior left frontal lobe likely related to prior trauma. Dictated by: Lan Almanzar M.D. on 05/15/2016 at 15:09 Approved by: Lan Almanzar M.D. on 05/15/2016 at 15:13 Date of Service: 05/15/16 1342 PROCEDURE: X-RAY CHEST ONE VIEW, PORTABLE ([id number]) INDICATIONS: CP FINDINGS: Surgical changes and devices: None. Lungs and pleura: There is a mild appearance of increased pulmonary vascularity. Mediastinum: Mediastinal contours appear normal. Heart size is normal. Bones and chest wall: No suspicious bony lesions. Overlying soft tissues appear unremarkable. IMPRESSION: Appearance of increased vascularity, possibly commercial sales representative of edema. Dictated by: Georgette Koroma M.D. on 05/15/2016 at 14:13 Approved by: Georgette Koroma M.D. on 05/15/2016 at 14:13 Brief History As per HPI by Dr. Amaya, "This is a 61 Y/O M with hx of chronic frontal headaches, and chronic back pain on morphine 15 mg time release 3 times a day, and Percocet 5-325 mg every 4 hours, who presented to the ED with complaint of 4 days of severe headache, associated with "hot flashes", sweats, nausea, vomiting X 12 in the past 3 days , diarrhea, mild cough (patient is a smoker). Two weeks ago he had all of his teeth pulled and now is edentulous. He reports residual mouth pain from the procedure. Patient stated he increased his daily dose of opiate medication to help with the dental pain, and has since run out 4 days or so ago. Patient states that this headache is different than his prior headache history in that is much more severe. Patient states however that the headache is located in the same area frontal region as his prior headaches have been. Describes pain as 10 out of 10 at its worst and sharp. When asked patient states that he believes is at the [facility]. Patient denies fever, chills, constipation, dysuria, hematuria, hematochezia, abdominal pain, sore throat, stuffiness. In the ED: Patient had lumbar puncture which showed hazy appearing cerebral spinal fluid and can color likely traumatic tap, [address]93 RBCs, glucose 72, protein 91. Patient received IV Tylenol 975 mg once, IV diazepam 5 mg, IV Midazolam 2 mg, IV lorazepam 1 mg, Roxicodone 5 mg by mouth once, MS Contin 15 mg by mouth once , promethazine IV once, and ceftriaxone 2 g once, Seroquel 200 mg once by mouth , and Benadryl 25 mg once IV. Temperature 37.4, pulse 133, blood pressure 155/103, respirations 24, 97% on room air Repeat vital signs: Temperature 36.7, pulse 112, blood pressure 118/78, respiratory rate 16, 95% room air. Hemogram: Showed white blood cell count 17.6, hemoglobin 18.3, hematocrit 52.4, platelets 335, neutrophils percent 66.4. Chemistry panel: Sodium 131, potassium 4.0, chloride 89, CO2 21, creatinine 0.75 , glucose 120, lactic acid 2.0, troponin 0.010, otherwise normal chemistry panel PT/INR 10.8/1.01, Patient had cerebral spinal fluid viral PCR panel that returned all negative. Flu swab was negative for influenza A/B CT brain showed no acute intracranial abnormality, small region of encephalomalacia re-demonstrated in the inferior left frontal lobe likely related to prior trauma. Chest x-ray: Appearance of increased vascularity possibly commercial sales representative of edema" Hospital Course 61-year-old male with history of chronic headache and chronic back pain on chronic opiate medication who recently ran out of his opiate medication and presented to the ED complaining of 4 days of severe headaches located in the frontal region. Patient was admitted for severe headache and acute withdrawal symptoms. # Acute onset severe intractable headache pain, present on admission, resolved - Patient received IV Tylenol 975 mg once, IV diazepam 5 mg, IV Midazolam 2 mg, IV lorazepam 1 mg, Roxicodone 5 mg by mouth once, MS Contin 15 mg by mouth once , promethazine IV once, and ceftriaxone 2 g once, Seroquel 200 mg once by mouth , and Benadryl 25 mg once IV. - Patient rates headache pain as 10 over 10 at its worst located frontally and sharp in quality, currently demonstrating significant improvement - Likely rebound headache secondary to opiate withdrawal. _ Recent prescribing records reviewed, the patient is taking opiates inappropriately he does seem to have been prescribed the stated doses of MS Contin as well as oxycodone over the past several months by primary care doctor which does confirm history. - Patient had CT brain which showed no acute process. - IV fluids with normal saline as needed to maintain blood pressures. - IV Tylenol for headache pain - IV lorazepam 0.5-1 mg every 4 hours when necessary By mouth Roxicodone every 4 hours when necessary, in addition to MS Contin started now to twice a day dosing after confirming dosing provided by outpatient doctor. Discharged with short course of opiate based pain medications with plan to FU with PCP for refill later this week. # Opioid withdrawal, presently in remission, active - Patient had signs and symptoms of withdrawal including tachycardia, dilated pupils, diaphoresis and hot flashes, rebound headache, nausea, vomiting, diarrhea - IV lorazepam 0.5-1 mg every 4 hours when necessary, though does not appear needed any more given her response to resumption of chronic opiate therapy. By mouth Roxicodone every 4 hours when necessary, in addition to restarting long -acting opiate # Tachycardia, acute, present on admission, active - Heart rate 112, rate improved some averaging around 100 bpm during my examination. - Likely secondary to opiate withdrawal vs pain. - Hemodynamically stable at time of discharge. # Leukocytosis, chronicity unknown, present on admission, active - Received received Ceftriaxone 2 g once in the emergency department - Patient had lumbar puncture which showed hazy appearing cerebral spinal fluid and pink color, 29428 RBCs, glucose 72, protein 91. - CBC 17.6 - Patient had cerebral spinal fluid viral PCR panel that returned all negative. - Flu swab was negative for influenza A/B - CT brain showed no acute intracranial abnormality, small region of encephalomalacia redemonstrated in the inferior left frontal lobe likely related to prior trauma. - Chest x-ray: Appearance of increased vascularity possibly commercial sales representative of edema - Possible source of infection could be dental extraction Negative blood cultures if no other evidence of infection is demonstrated , antibiotics discontinued on discharge. # Hypochloremic hyponatremia, present on admission, resolved on discharge. # Hyperglycemia; improved. Exam Vital Signs (Last) Date Time Temp Pulse Resp B/P Pulse Ox O2 Delivery O2 Flow Rate FiO2 05/17/16 14:30 36.8 97 20 145/98 95 Room Air Exam General: Alert, Oriented X3, Cooperative, Mild Distress, Other (mildly disheveled) Eyes: PERRLA, EOMI Mouth: Mucous MembrANES Moist/[place], Other (no teeth due to multiple extractions ) Chest & Lungs: Clear to auscultation & percussion Cardiovascular: Regular Rate/Rhythm, Other (frequent PVCs) Abdomen: Non-tender, Non-distended Extremities: No cyanosis/clubbing/edema bilat Neurological: Grossly Neurologically Intact Test 05/15/16 13:50 05/15/16 19:28 05/16/16 06:05 05/17/16 05:20 Erythrocyte Sedimentation Rate 9mm/hr (0-30) Prothrombin Time 10.8sec (8.1-12.5) Prothromb Time International Ratio 1.01ratio Activated Partial Thromboplast Time 28.8sec (22.8-33.0) Lactic Acid Level 2.0mmol/L (0.4-2.0) Magnesium Level 2.4mg/dL (1.6-2.6) Troponin T < 0.010ug/L (0.0-0.011) Lipase 18U/L (13-60) Hold Strange Top Tube Received (Received) CSF Appearance Hazy (CLEAR) CSF Color [place] (COLORLESS) CSF WBC 0/mm3 (0-5) CSF RBC 74025/mm3 CSF Mononuclear WBCs % CSF Polynuclear WBCs % CSF Other Cells CSF Glucose 72mg/dL (45-90) CSF Total Protein 91mg/dL (15-45) Hemoglobin A1c 5.6% (4.8-5.6) Total Bilirubin 0.6mg/dL (0.0-1.2) Aspartate Amino Transf (AST/SGOT) 27U/L (0-50) Alanine Aminotransferase (ALT/SGPT) 17U/L (0-44) Alkaline Phosphatase 50U/L (25-160) Total Protein 6.3g/dL (6.4-8.4) Albumin 3.3g/dL (3.4-5.0) White Blood Count 7.9th/mm3 (3.8-10.1) Red Blood Count 3.99mil/mm3 (4.40-5.80) Hemoglobin 13.4g/dL (13.8-17.2) Hematocrit 39.7% (41.0-50.0) Mean Corpuscular Volume 99.5fL (81-100) Mean Corpuscular Hemoglobin 33.6pg (27.0-35.0) Mean Corpuscular Hemoglobin Concent 33.8% (32.0-37.0) Red Cell Distribution Width 12.7% (12.3-15.4) Platelet Count 213bil/L (150-400) Neutrophils (%) (Auto) 43.7% (40-74) Lymphocytes (%) (Auto) 39.9% (14-46) Monocytes (%) (Auto) 11.3% (4-12) Eosinophils (%) (Auto) 3.4% (0-5) Basophils (%) (Auto) 1.4% (0-3) Sodium Level 133mEq/L (134-144) Potassium Level 3.8mEq/L (3.5-5.2) Chloride Level 98mEq/L (97-108) Carbon Dioxide Level 20mmol/L (18-29) Blood Urea Nitrogen 15mg/dL (6-24) Creatinine 0.64mg/dL (0.76-1.27) Estimat Glomerular Filtration Rate 136mL/min (>59) Glucose Level 104mg/dL (60-99) Calcium Level 8.1mg/dL (8.5-10.1) Discharge Medications Discharge Medications ([mirtazapine]) 10 MG PO HS (Reported) Morphine Sulfate ER (Morphine Sulfate ER) 15 Mg Tablet 15 MG PO BID Prescribed by: GIOVANNY MIXON DO Prazosin (Prazosin) 2 Mg Capsule 2 MG PO HS (Reported) Quetiapine Fumarate (Seroquel) 200 Mg Tablet 200 MG PO HS (Reported) Tamsulosin (Flomax) 0.4 Mg Capsule 0.4 MG PO HS (Reported) As needed Ondansetron (Ondansetron) 4 Mg Tablet 4 MG PO PRN For Nausea (Reported) Ondansetron (Ondansetron) 4 Mg Tablet 4 MG PO Q6 hrs PRN PRN For Nausea ( Reported) Tizanidine (Tizanidine) 2 Mg Tablet 1 TAB PO HS PRN PRN muscle spasms (Reported ) oxyCODONE (oxyCODONE) 5 Mg Tablet 5 MG PO Q4H PRN PRN For Pain Prescribed by: GIOVANNY MIXON DO Miscellaneous Medications ([bupropion]) (Reported) ([morphine]) 15 MG PO (Reported) Followup Plan Disposition: Home Follow-up plan Rene Castano in 1 week for refill of controlled medications. Discharge Diet: No restrictions Discharge Activity: No restrictions Follow-up with PCP in: 1 week Time spent 40 minutes Giovanny Mixon DO May 17, 2016 18:56
== END 2016-05-17 13:40 | disposition home or self-care (01) ==
LOC: EDBD 13:05 → SED 13:05 → MPC 23:15
PROVIDERS: ADMIT Internal Medicine; ATTEND Internal Medicine
DX: R51 Headache (principal); F11.23 Opioid dependence with withdrawal; T40.2X5A Adverse effect of other opioids, initial encounter; R00.0 Tachycardia, unspecified; D72.829 Elevated white blood cell count, unspecified; E87.1 Hypo-osmolality and hyponatremia; R73.9 Hyperglycemia, unspecified; G47.34 Idiopathic sleep related nonobstructive alveolar hypoventilation; R11.2 Nausea with vomiting, unspecified; D75.1 Secondary polycythemia; E86.0 Dehydration; M54.9 Dorsalgia, unspecified; F17.210 Nicotine dependence, cigarettes, uncomplicated; Z98.818 Other dental procedure status; Z96.643 Presence of artificial hip joint, bilateral
CPT/HCPCS: 36415; 62270; 70450; 71010; 77003; 80048; 80053; 82945; 83036; 83605; 83690; 83735; 84155; 84484; 85025; 85610; 85651; 85730; 87040; 87070; 87150; 87205; 87496; 87498; 87529; 87532; 87798; 87804; 89051; 93005; 96365; 96366; 96375; 96376; 99285; G0378; J0696; J1200; J1644; J2060; J2250; J2550; J3360; J3490; J7030

== ENCOUNTER 2016-06-07 18:35 | Inpatient (IN) | payer MEDICARE ==
[~2016-06-07] VITALS: Ht 172.7 cm; Wt 91.3 kg
[~2016-06-07 18:35] MED LIST changes: -ALPR0.5T9 PO; -ATEN25TA7 PO; -LACL30 PO; -LOR75 PO; +MORP-32 PO; +ONDA-53 PO; +OXYC5TAB72 PO; +PRAZ2CAP2 PO; -Promethazine Inj 25 MG in Dextrose 5%-Pha MIX 50 ML IV PRN; +QUET200T PO; -QUET300T2 PO; -SERXR300 PO; +TAMS0.4C98 PO; +TIZA2TAB3 PO; -VITAMIN D PO; +bupropion PO; +mirtazapine PO; +morphine PO
[2016-06-07 18:56] VITALS: BP 132/57; PULSE 122; RESP 12; O2SAT 98
--- NOTE | 2016-06-07 19:07 | ED.REPORT ---
HPI-Chest Pain 40 and Over Date of Service Jun 07, 2016 ED Provider: Boaz Villalba MD Pt is a 61 y/o male w/ a hx of chronic back pain and headaches w/ narcotic dependence presenting to the ED via EMS with multiple vague complaints onset 2 days ago. He c/o CP, back pain, nausea, vomiting, night sweats, COOL, cough, sore throat, abdominal pain. He denies diarrhea, SOB, lightheadedness, dizziness. He drinks 1 beer/day and he smokes. Nursing Notes Stated Complaint: CHEST PAIN Chief Complaint: Chest Pain Nursing Notes Reviewed: Yes Allergies: Coded Allergies: No Known Allergies (Verified , 04/21/11) Scheduled ([bupropion]) Unknown Strength Unknown Dose PO BID ([mirtazapine]) 10 MG PO HS Morphine Sulfate ER (Morphine Sulfate ER) 15 Mg Tablet 15 MG PO BID Quetiapine Fumarate (Seroquel) 200 Mg Tablet 200 MG PO HS Tamsulosin (Flomax) 0.4 Mg Capsule 0.4 MG PO HS Scheduled PRN Ondansetron (Ondansetron) 4 Mg Tablet 4 MG PO QID PRN PRN For Nausea Tizanidine (Tizanidine) 2 Mg Tablet 1 TAB PO HS PRN PRN muscle spasms oxyCODONE (oxyCODONE) 5 Mg Tablet 5 MG PO Q4H PRN PRN For Pain General Time Seen by MD: 19:05 Chief Complaint Other (N/V) Hx Obtained From: Patient, EMS Arrived By: Ambulance Sudden in Onset?: No Onset Occurred: 2 days ago Symptom Duration: Since onset Location: : Substernal Quality: Painful Severity: Current: Mild Severity: Maximum: Moderate Recent Healthcare: Recent doctor visit, Recent hospitalization Past Medical History Past Medical History Chronic back pain Chronic headaches Past Surgical History Reports: Hip replacement Smoking History Current Every Day Smoker Social History Alcohol Use: 1-3 per day Ambulatory Status Independent Review of Systems Constitutional: Denies: Chills, Fever Respiratory: Reports: Non-productive cough, Denies: Shortness of breath GI: Reports: Abdominal pain, Nausea, Vomiting, Denies: Diarrhea Musculoskeletal: Reports: Back pain, Denies: Extremity pain Skin: Reports Diaphoresis, Denies Bruising Neurologic: Denies: Dizziness, Lightheaded Complete sys rev & neg: except as marked. Ears / Nose / Throat: Reports: Sore throat, Denies: Throat swelling Physical Exam Initial Vital Signs Vital Signs (First) Date Time Temp Pulse Resp B/P Pulse Ox O2 Delivery O2 Flow Rate FiO2 06/07/16 18:56 37.5 122 12 132/57 98 Room Air Initial VS: Reviewed, Vital signs abnormal Head / Eyes: Atraumatic, Normocephalic, PERRL ENT: Mucous membranes moist, Conjunctiva normal, No scleral icterus Neck: Supple, Full range of motion Extremities: Vascular intact, Neuro intact, No swelling, No tenderness Skin: Warm, Dry, No cyanosis Neurologic: Alert, Oriented, Nonfocal Psychiatric: Mood/affect normal, Behavior normal, Normal thought content General/Constitutional: Awake, Alert, No acute distress, Cooperative, Not toxic appearing Respiratory / Chest: Atraumatic, Breath sounds NL, Breath sounds = bilat, No respiratory distress, No rales, No rhonchi, No wheezing, No retractions, No stridor, No chest tenderness, No chest wall deformity, No crepitus Cardiovascular: Heart rate NL, Regular rhythm, Heart sounds NL, No gallop, No murmurs, No rubs, Cap refill not delayed, Peripheral circulation NL Abdomen: Atraumatic, Soft, No rebound Tenderness/Guarding/Rebound: Positive: Guarding voluntary (mild), Tender epigastric (mod) Interpretation & Diagnostics Interpretation & Diagnostics: US abdomen: Impression: 1. Findings consistent with acute cholecystitis. 2. The common duct is not well-visualized. The visualized portion is borderline dilated for age measuring 6 mm. Interpreted by Darian Smith MD at 2250 Lab Results Interpretation Result Diagram: 06/07/16 1905 06/07/16 190 Test 06/07/16 19:05 06/07/16 21:08 White Blood Count 11.7th/mm3 (3.8-10.1) Red Blood Count 4.72mil/mm3 (4.40-5.80) Hemoglobin 15.7g/dL (13.8-17.2) Hematocrit 46.3% (41.0-50.0) Mean Corpuscular Volume 98.1fL (81-100) Mean Corpuscular Hemoglobin 33.3pg (27.0-35.0) Mean Corpuscular Hemoglobin Concent 33.9% (32.0-37.0) Red Cell Distribution Width 13.5% (12.3-15.4) Platelet Count 283bil/L (150-400) Neutrophils (%) (Auto) 67.8% (40-74) Lymphocytes (%) (Auto) 19.7% (14-46) Monocytes (%) (Auto) 9.6% (4-12) Eosinophils (%) (Auto) 2.0% (0-5) Basophils (%) (Auto) 0.6% (0-3) D-Dimer 1.2mg/L (<0.50) Sodium Level 134mEq/L (134-144) Potassium Level 4.0mEq/L (3.5-5.2) Chloride Level 95mEq/L (97-108) Carbon Dioxide Level 19mmol/L (18-29) Blood Urea Nitrogen 11mg/dL (6-24) Creatinine 0.75mg/dL (0.76-1.27) Estimat Glomerular Filtration Rate 113mL/min (>59) Glucose Level 149mg/dL (60-99) Calcium Level 8.6mg/dL (8.5-10.1) Magnesium Level 2.2mg/dL (1.6-2.6) Total Bilirubin 0.6mg/dL (0.0-1.2) Aspartate Amino Transf (AST/SGOT) 19U/L (0-50) Alanine Aminotransferase (ALT/SGPT) 13U/L (0-44) Alkaline Phosphatase 62U/L (25-160) Troponin T < 0.010ug/L (0.0-0.011) Total Protein 7.1g/dL (6.4-8.4) Albumin 3.6g/dL (3.4-5.0) Lipase 12U/L (13-60) Hold Strange Top Tube Received (Received) Urine Color Yellow (YELLOW) Urine Appearance Clear (CLEAR,HAZY) Urine pH 6.0 (5.0-8.0) Urine Specific [place] 1.027 (1.003-1.035) Urine Protein Negativemg/dL (NEG,TRACE) Urine Glucose (UA) Negativemg/dL (NEGATIVE) Urine Ketones Negativemg/dL (NEGATIVE) Urine Occult Blood Negative (NEGATIVE) Urine Nitrite Negative (NEGATIVE) Urine Bilirubin Negative (NEGATIVE) Urine Urobilinogen Normalmg/dL (NORMAL) Urine Leukocyte Esterase Negative (NEGATIVE) Urine RBC 0-2/hpf (0-2) Urine WBC 0-5/hpf (0-5) Urine Epithelial Cells Occasional/hpf (NONE-MOD) Urine Crystals None seen (NONE SEEN) Urine Bacteria Few/hpf (NONE-FEW) Urine Hyaline Casts None/lpf (NONE) Urine Granular Casts None seen (NONE SEEN) Urine Waxy Casts None seen (NONE SEEN) Urine Red Blood Cell Casts None seen (NONE SEEN) Urine White Blood Cell Casts None seen (NONE SEEN) Urine Mucus Present (None Seen) Urine Trichomonas None seen (NONE SEEN) Urine Yeast None (NONE SEEN) Urinalysis Comment None Urine Culture Reflexed Not indicated ECG Interpretation ECG Interpretation: Sinus tachycardia rate 135 Time: 19:23 Interpreted by: ED physician Normal ECG Interpretation: No acute ischemic changes, No change from prior ECGs X-Ray Chest Interpretation Chest Xray Interpretation: IMPRESSION: No acute cardiopulmonary findings. Dictated by: Adelaide De M.D. on 06/07/2016 at 19:19 Approved by: Adelaide De M.D. on 06/07/2016 at 19:19 View: Portable, 1 view Interpretation / Wet Read by: Interpret - Radiologist CT Abd / Pelvis Interpretation IMPRESSION: 1. Gallbladder distention and mild gallbladder wall thickening. These findings may be associated with early acute acalculous cholecystitis. If further characterization is warranted, right upper quadrant ultrasound may be helpful to evaluate the gallbladder wall. 2. Normal appendix. 3. Multilevel wedge compression deformities of the thoracolumbar spine of indeterminate age. Dictated by: Adelaide De M.D. on 06/07/2016 at 21:00 Approved by: Adelaide De M.D. on 06/07/2016 at 21:07 Study type: Abdominal CT IV contrast Interpretation / Wet Read by: Interpret - Radiologist Re-Eval/Medical Decision Med Decision/Clinical Course Acute cholecystitis. Pain poorly controlled. Admitted to general surgeon. Nothing by mouth at midnight. Given Unasyn. Time of Eval: 23:57 Re-Evaluation/Progress Note: Pt rechecked. Informed pt of need for admission for surgical intervention. Pt understands and agrees with plan for admission. All questions addressed. Consultation : Referral / Consult Name: Kasandra Thomas MD Consulted With: Surgeon Call Returned at: 23:56 Lawnmower Repair Mechanic: Will see patient, Agrees with eval, Agrees with plan, Accepts admit Note: Surgery accepts admit. Requests Unisyn. Counseled Regarding: Diagnosis, Lab results, Need for admission Discharge & Departure Primary Impression: Acute cholecystitis Disposition: ADMITTED TO HOSPITAL Discharge Condition All VS Reviewed: Yes Condition: Stable Referrals: Neeraj Pereyra MD (PCP) Scribe Attestation Portions of this note were transcribed by Serge Ruff. I, Dr. Villalba, personally performed the history, physical exam and medical decision-making; I reviewed and confirmed the accuracy of the information in the transcribed note. Signed by Inna Hand, 06/07/16 - 1999 copies to: Neeraj Pereyra MD, Ben M MD Jun 07, 2016 19:07 SERGE RUFF Jun 07, 2016 19:23 SERGE RUFF Jun 07, 2016 19:23
[2016-06-07 19:19] LABS: BASOPHILS % (AUTO) 0.6 % (0-3); MONOCYTES % (AUTO) 9.6 % (4-12); Mean Corpuscular Hemoglobin 33.3 pg (27.0-35.0); Mean Corpuscular Volume 98.1 fL (81-100); NEUTROPHILS % (AUTO) 67.8 % (40-74); Platelet Count 283 bil/L (150-400)
--- NOTE | 2016-06-07 19:21 | DRSVH ---
PROCEDURE: X-RAY CHEST ONE VIEW, PORTABLE ([id number]) INDICATIONS: CHEST PAIN TECHNIQUE: One view of the chest was acquired. COMPARISON: [facility], CR, XR CHEST 1VW (PORTABLE), 05/15/2016, 13:51. FINDINGS: Surgical changes and devices: None. Lungs and pleura: No pleural effusions or pneumothorax. Lungs are clear. Mediastinum: Mediastinal contours appear normal. Heart size is normal. Bones and chest wall: No suspicious bony lesions. Overlying soft tissues appear unremarkable. IMPRESSION: No acute cardiopulmonary findings. Dictated by: Adelaide De M.D. on 06/07/2016 at 19:19 Approved by: Adelaide De M.D. on 06/07/2016 at 19:19
[2016-06-07] MEDS ORDERED: 0.9% Sodium Chloride 1,000 ML IV ONE ×2 (19:37→22:40)
[2016-06-07] MEDS ORDERED: LidocaineVisc 2%:Antacid 1:1 10 mL Syringe PO ONE (19:40)
[2016-06-07 19:52] LABS: TROPONIN T < 0.010 ug/L (0.0-0.011)
[2016-06-07] MEDS: Ondansetron 2 mg/mL 2 mL Inj IVPUSH PRN (19:58)
[2016-06-07 20:23] LABS: Magnesium 2.2 mg/dL (1.6-2.6)
[2016-06-07] MEDS ORDERED: Alum-Mag Hydrox-Simeth 30 mL Suspension PO ONE (20:30)
--- NOTE | 2016-06-07 21:08 | DRSVH ---
PROCEDURE: CT ABDOMEN AND PELVIS WITH CONTRAST ([id number]) INDICATIONS: epigastric pain TECHNIQUE: After the administration of intravenous contrast, 5 mm thick sections acquired from the diaphragm to the symphysis. 5 mm coronal and sagittal reformats were acquired. For radiation dose reduction, the following was used: automated exposure control, adjustment of mA and/or kV according to patient fletcher rangel. COMPARISON: [facility], MR, LUMBAR SPINE W/O CONTRAST, 01/22/2012, 14:41. FINDINGS: Image quality: Excellent. ABDOMEN: Lung bases: Lung bases are clear. Heart size is normal. Solid organs: Liver and spleen are normal in size and enhancement. The gallbladder is moderately dis tended. There is subtle gallbladder wall thickening and trace pericholecystic fluid. Biliary system i s non dilated. Pancreas enhances normally. No adrenal nodules. Kidneys demonstrate normal size and enhancement, without hydronephrosis. Peritoneum and bowel: Bowel loops demonstrate normal wall thickness and caliber. The appendix is thi n walled and gas filled. No free fluid or air. Nodes and vessels: No retroperitoneal or mesenteric adenopathy by size criteria. Aorta and inferior vena cava are normal in size. There are scattered atheromatous calcifications throughout the aorta and iliac arteries bilaterally. Miscellaneous: No ventral hernias. PELVIS: Genitourinary: Bladder wall thickness is normal. Miscellaneous: No inguinal hernias or adenopathy. Bones: No suspicious bony lesions. There is severe wedge compression deformities at L1-L4. Wedge com pression deformities are also present within the lower portion of the thoracic spine as visualized. T hese have markedly increased in severity when compared with the prior MRI of the lumbar spine dated 1 . No recent studies available to determine the acuity of this finding. IMPRESSION: 1. Gallbladder distention and mild gallbladder wall thickening. These findings may be associated with early acute acalculous cholecystitis. If further characterization is warranted, right upper quadrant ultrasound may be helpful to evaluate the gallbladder wall. 2. Normal appendix. 3. Multilevel wedge compression deformities of the thoracolumbar spine of indeterminate age. Dictated by: Adelaide De M.D. on 06/07/2016 at 21:00 Approved by: Adelaide De M.D. on 06/07/2016 at 21:07
--- NOTE | 2016-06-07 21:12 | DRSVH ---
PROCEDURE: CT ANGIO CHEST PULMONARY EMBOLISM ([id number]) INDICATIONS: cp elevated dimer TECHNIQUE: After the administration of intravenous contrast, 2 mm thick sections acquired from the pulmonary api ritu to the posterior costophrenic angles. 3-dimensional maximum intensity projection (MIP) coronal a nd sagittal reformats were then acquired through the thorax. For radiation dose reduction, the follo wing was used: automated exposure control, adjustment of mA and/or kV according to patient size. COMPARISON: None. FINDINGS: Image quality: Excellent. Pulmonary arteries: Pulmonary arteries are normal in size, and demonstrate no intraluminal filling d efects to suggest central pulmonary embolism. Lungs and pleura: Lungs are clear. No pleural effusions or pneumothorax. Central and peripheral ai rways are patent. Mediastinum: Heart size is normal, without pericardial effusion. No mediastinal or hilar adenopathy . Thoracic aorta is normal in caliber and enhancement. Esophagus is normal in caliber, without hiat al hernia. Bones and chest wall: No suspicious bony lesions. Ribs and thoracic spine appear intact throughout. Thyroid gland is unremarkable. No axillary or supraclavicular adenopathy. Abdomen: Visualized upper abdominal solid organs appear normal in the early arterial phase of enhanc ement. IMPRESSION: 1. No acute pulmonary embolus. Dictated by: Adelaide De M.D. on 06/07/2016 at 21:07 Approved by: Adelaide De M.D. on 06/07/2016 at 21:11
[2016-06-07 21:39] LABS: APPEARANCE,URINE CLEAR (CLEAR,HAZY); COLOR,URINE YELLOW (YELLOW); OCCULT BLOOD,URINE NEGATIVE (NEGATIVE); UROBILINOGEN,URINE NORMAL (NORMAL)
[2016-06-07] MEDS: HYDROmorphone 1 mg/mL Inj IM PRN (23:17)
[2016-06-08] VITALS (13 sets, daily range): BP systolic 128–150; BP diastolic 76–94; PULSE 89–120; RESP 14–18; O2SAT 93–99
[2016-06-08] MEDS ORDERED: Alum-Mag Hydrox-Simeth 30 mL Suspension PO PRN ×2 (00:20→23:45)
[2016-06-08] MEDS ORDERED: Ondansetron 2 mg/mL 2 mL Inj IVPUSH PRN ×3 (00:20→10:05)
[2016-06-08] MEDS: HYDROmorphone 1 mg/mL Inj IM PRN ×5 (00:57→19:43)
[2016-06-08] MEDS ORDERED: Dexamethasone 4 mg/mL Inj ONE (01:00)
[2016-06-08] MEDS ORDERED: Propofol 10,000 mCg/mL 20 mL Inj ONE (01:00)
[2016-06-08] MEDS ORDERED: Ondansetron 2 mg/mL 2 mL Inj ONE (01:00)
[2016-06-08] MEDS ORDERED: LacriLube S.O.P. 3.5 Gm Ophthalmic Ointment ONE (01:00)
[2016-06-08] MEDS ORDERED: fentaNYL-PF 50 mCg/mL 2 mL Inj ONE (01:00)
[2016-06-08] MEDS ORDERED: Lidocaine PF 1% 30 mL Inj ONE (01:00)
[2016-06-08] MEDS ORDERED: Rocuronium 10 mg/mL 5 mL Inj ONE (01:00)
--- NOTE | 2016-06-08 02:05 | HP ---
[address] [address] HISTORY AND PHYSICAL PATIENT: MISTI STEVENS : 1955 MR#: [id number] ADMIT: 06/08/2016 JOB ID: [id number] CHIEF COMPLAINT: A 61-year-old gentleman with acute cholecystitis. Seen in consultation at the request of Boaz Villalba MD. HISTORY OF PRESENT ILLNESS: The patient is a 61-year-old gentleman with chronic pain issues who came in with severe chest and upper abdominal pain. It started over the last couple of days and he was initially worked up for acute cardiac and pulmonary etiology with CT scan, and then a CT abdomen and pelvis which was suggestive of cholecystitis. I was called to take care of him. He has never had anything like this before. He did not know that he had gallstones. He does not remember even having abdominal pain episodes before. OTHER MEDICAL PROBLEMS: 1. Chronic pain. 2. Osteoarthritis. 3. Chronic back pain. 4. Obesity. HOME MEDICATIONS: 1. Morphine 50 mg extended release twice a day. 2. Oxycodone 5 mg as needed. 3. He also reports taking mirtazapine. 4. Seroquel. 5. Tamsulosin. 6. Bupropion. ALLERGIES: No known drug allergies. PRIOR OPERATIONS: Bilateral hip replacement. FAMILY HISTORY: Alzheimer's. SOCIAL HISTORY: He has been smoking for the last 15-20 years, over a pack a day. He does drink alcohol. INVESTIGATIONS: Laboratory from June 07, 2016, WBC 11.7, hemoglobin 15.7, platelet count 283. Creatinine 0.75, glucose 149. Normal liver function studies. Lipase 12. INR 1.2. Chest x-ray, no acute cardiopulmonary findings. CT pulmonary angiogram, no acute pulmonary embolus. CT abdomen and pelvis, gallbladder distention with wall thickening, and a stone seen near the gallbladder, cystic duct junction. Multilevel wedge compression deformities of the thoracolumbar spine. Abdominal ultrasound visualized multiple gallstones in addition to the wall thickening. PHYSICAL EXAM: A 61-year-old male, in mild distress. BMI 30.5. Temperature 37.4, pulse 111, respiratory rate 18, blood pressure 150/94, saturating 97% on room air. Eyes: Normal pupils, conjunctivae. Ears, nose, and throat: Normal external appearance. Neck: No adenopathy. Respiratory: Normal effort, clear to auscultation. Cardiovascular: Regular rate and rhythm. Gastrointestinal: Tender to palpation in the upper abdomen, more on the right upper quadrant. Musculoskeletal: Normal strength. Neurologic: No gross deficits. Psych: Alert, appropriate. ASSESSMENT AND PLAN: Acute cholecystitis. I discussed the pathophysiology and treatment rationale for cholecystitis and recommended laparoscopic cholecystectomy with cholangiogram. I will discuss this case with Dr. Cote, who is on-call today, and hopefully we should be able to take care of him, either me or him, based on what the schedule allows.
--- NOTE | 2016-06-08 02:40 | NUR ---
ADMITTED; from ben at approx. 0130 via gurney to room 1028 with c/o 2 day history of nausea/vomiting/headache/abd pain. Addendum: 06/08/16 at 0242 by MICKI NGUYEN RN See admit screens.
--- NOTE | 2016-06-08 04:12 | NUR ---
PAIN; morphine 4mg iv for c/o 9/10 abd pain plus headache with relief. Pt sleeping on and off. Npo for surgery today. Voiding in the urinal. Pleasant/cooperative. No c/o nausea.
--- NOTE | 2016-06-08 07:13 | NUR ---
REPORT; given to Khari Bey RN. Dr. Thomas in to see pt. Consent signed and witnessed. No belongings with pt to [facility].
--- NOTE | 2016-06-08 07:17 | NUR ---
TO O.R. at this time via yunier.
[2016-06-08] MEDS ORDERED: Lactated Ringer's 500 ML IV PRN (07:26)
[2016-06-08] MEDS ORDERED: Lactated Ringer's 1,000 ML IV SCH (07:26)
--- NOTE | 2016-06-08 07:26 | PCM.HPANE ---
Patient Data Date of Service: Jun 08, 2016 (0720) Surgeon Admitting Provider:Kasandra Thomas MD Attending Provider:Kasandra Thomas MD [facility]ician[facility] Other Provider:Norma Thomas Anesthesia Reason for Visit Acute Cholecyctitis Ht/WT & BMI Height (Feet): 5 Height (Inches): 8.00 Weight (Kilograms): 91.300 Body Mass Index 30.51 Allergies Coded Allergies: No Known Allergies (Verified , 06/08/16) Diabetes History Hx Diabetes?: No MRSA MRSA: No Medications Active Scripts Morphine Sulfate ER 15 Mg [id number] Mg PO BID #10 Prov:Giovanny Mixon DO 05/17/16 oxyCODONE 5 Mg Tablet5 Mg PO Q4H PRN For Pain #20 TABLET Ref 0 Prov:Giovanny Mixon DO 05/17/16 Reported Medications Tizanidine 2 Mg Tablet1 Tab PO HS PRN muscle spasms 05/16/16 Tamsulosin (Flomax)0.4 Mg Capsule0.4 Mg PO HS Ref 0 05/16/16 Ondansetron 4 Mg Tablet4 Mg PO QID PRN For Nausea 05/16/16 Quetiapine Fumarate (Seroquel)200 Mg [id number] Mg PO HS Ref 0 05/16/16 [mirtazapine] No Conflict Check10 Mg PO HS 05/16/16 [bupropion] Unknown Strength No Conflict CheckUnknown Dose PO BID 05/16/16 Discontinued Reported Medications Prazosin 2 Mg Capsule2 Mg PO HS 05/16/16 Ondansetron 4 Mg Tablet4 Mg PO Q6 hrs PRN For Nausea 05/16/16 [morphine] No Conflict Check15 Mg PO 05/16/16 History History of ENT Problems?: Yes HEENT History: Positive for:: Sinus Problem (sinus infection ) Other HEENT Pertinent History: above per "recall" Hx of Heart Problems?: Yes Cardiovascular History: Positive for:: Hypertension (history) Denies:: Congestive Heart Failure Other Cardiac History: above per "recall" Hx of Respiratory Problem?: No Respiratory History: Denies:: Tuberculosis Other Resp Pertinent History: above per "recall" Hx Neurologic Problems?: Yes Neurological History: Positive for:: Headaches (remote history after falling off porch) Other Neurological Pertinent: above per "recall" states uses walker for long distances other sebastian ambulates indep. Hx of GI Problems?: Yes Other GI Pertinent History: above per "recall" Hx of Problems?: No Other Pertinent History: above per "recall" Male Hx: Denies:: Prostate Problems Scrotal Mass Testicular Surgery Hx Musculoskeletal Problems?: Yes Musculoskeletal History: Positive for:: Back Injury (walked off drill press) Joint Replacement (bilat hip) Hx of Psycho/Social Problems?: Yes Psycho Social History: Positive for:: Bipolar Disorder Hx Depression Suicide Attempt (1994) Other Psych Pertinent History: above per "recall" Hx Surgeries?: Yes (Back, bilat hips, cornia transplants) Hx Any Other Health Problems?: Yes History Blood Transfusions: Positive for:: Accept Blood Products? Denies:: Blood Transfusions Hx Diabetes: No Other Pertinent History: above per "recall" Hx Alcohol Use: YesAlcoholic Drinks Per Day: 1-2 beers/dayHx Substance Use: No Smoking Status: Current Every Day Smoker Have You Smoked inLast 12 mo: YesApprox How Many Cigarettes/day: LESS THAN A PACK A DAY Stop/Bang Treated for Sleep Apnea?: No Do You Have a CPAP Machine?: No S-Snoring: Do You Snore Loudly: Yes T-Tired: feel tired, fatigued: Yes O-Obsered: Observed not breath: No P-Blood Pressure: treated: No B- Body Mass Index > 35 kg/m2: No A- Age over 50: Yes N- Neck Large Circumference: No G- Gender Male: Yes OTTO Total Score: 3 OTTO Risk Assessment: Low Risk, <3 Yes Risk Assessment Category Category 1A: Patient has history of documented sleep apnea, and HAS NOT received any narcotic, sedative or anesthesia administration during this stay. Category 1B: Patient has history of documented sleep apnea, and HAS received any narcotic , sedative or anesthesia administration during this stay Category 2: Patient has SUSPECTED Obstructive Sleep Apnea, and HAS received any narcotic , sedative or anesthesia administration during this stay. Category 3: Patient has SUSPECTED Obstructive Sleep Apnea and HAS NOT received narcotic, sedative or anesthesia administration during this stay. Category 4: Outpatient in Procedural Areas with known sleep apnea or who screen positive for High Risk via the STOP/BANG questionnaire. Exam Exam Vital Signs Vital Signs Date Time Temp Pulse Resp B/P Pulse Ox O2 Delivery O2 Flow Rate FiO2 06/08/16 05:39 36.4 95 18 128/76 97 Room Air 06/08/16 01:41 37.2 120 18 135/87 97 Room Air 06/08/16 01:10 37.4 111 18 150/94 97 Room Air 06/08/16 01:00 37.4 111 18 150/94 97 Room Air General Appearance: Alert, Oriented X3, Cooperative HEENT/AIRWAY: MP 2 (edentulous) Lungs: Clear to Auscultation Heart: Exam Unremarkable Meds/Labs/Diagnostics Admission Meds Current Medications Sodium Chloride (Normal Saline) 1,000 ml @ 0 mls/hr Q0M ONCE IV Last administered on 06/07/16 19:57; Start 06/07/16 at 19:37; Stop 06/07/16 at 19:39 ; Status DC Lidocaine HCl (Xylocaine Viscous 2% Soln 15mL) 5 ml OT ONCE PO Last administered on 06/07/16 20:53; Start 06/07/16 at 20:30; Stop 06/07/16 at 20:31 ; Status DC Al Hydrox/Mg Hydrox/ Simethicone 5 ml 5 ml OT ONCE PO Last administered on 20:52; Start 06/07/16 at 20:30; Stop 06/07/16 at 20:31; Status DC Sodium Chloride (Normal Saline) 1,000 ml @ 0 mls/hr Q0M ONCE IV Last administered on 06/07/16 23:17; Start 06/07/16 at 22:40; Stop 06/07/16 at 22:41 ; Status DC Labs Test 06/07/16 19:05 06/07/16 21:08 White Blood Count 11.7th/mm3 (3.8-10.1) Red Blood Count 4.72mil/mm3 (4.40-5.80) Hemoglobin 15.7g/dL (13.8-17.2) Hematocrit 46.3% (41.0-50.0) Mean Corpuscular Volume 98.1fL (81-100) Mean Corpuscular Hemoglobin 33.3pg (27.0-35.0) Mean Corpuscular Hemoglobin Concent 33.9% (32.0-37.0) Red Cell Distribution Width 13.5% (12.3-15.4) Platelet Count 283bil/L (150-400) Neutrophils (%) (Auto) 67.8% (40-74) Lymphocytes (%) (Auto) 19.7% (14-46) Monocytes (%) (Auto) 9.6% (4-12) Eosinophils (%) (Auto) 2.0% (0-5) Basophils (%) (Auto) 0.6% (0-3) D-Dimer 1.2mg/L (<0.50) Sodium Level 134mEq/L (134-144) Potassium Level 4.0mEq/L (3.5-5.2) Chloride Level 95mEq/L (97-108) Carbon Dioxide Level 19mmol/L (18-29) Blood Urea Nitrogen 11mg/dL (6-24) Creatinine 0.75mg/dL (0.76-1.27) Estimat Glomerular Filtration Rate 113mL/min (>59) Glucose Level 149mg/dL (60-99) Calcium Level 8.6mg/dL (8.5-10.1) Magnesium Level 2.2mg/dL (1.6-2.6) Total Bilirubin 0.6mg/dL (0.0-1.2) Aspartate Amino Transf (AST/SGOT) 19U/L (0-50) Alanine Aminotransferase (ALT/SGPT) 13U/L (0-44) Alkaline Phosphatase 62U/L (25-160) Troponin T < 0.010ug/L (0.0-0.011) Total Protein 7.1g/dL (6.4-8.4) Albumin 3.6g/dL (3.4-5.0) Lipase 12U/L (13-60) Hold Strange Top Tube Received (Received) Urine Color Yellow (YELLOW) Urine Appearance Clear (CLEAR,HAZY) Urine pH 6.0 (5.0-8.0) Urine Specific [place] 1.027 (1.003-1.035) Urine Protein Negativemg/dL (NEG,TRACE) Urine Glucose (UA) Negativemg/dL (NEGATIVE) Urine Ketones Negativemg/dL (NEGATIVE) Urine Occult Blood Negative (NEGATIVE) Urine Nitrite Negative (NEGATIVE) Urine Bilirubin Negative (NEGATIVE) Urine Urobilinogen Normalmg/dL (NORMAL) Urine Leukocyte Esterase Negative (NEGATIVE) Urine RBC 0-2/hpf (0-2) Urine WBC 0-5/hpf (0-5) Urine Epithelial Cells Occasional/hpf (NONE-MOD) Urine Crystals None seen (NONE SEEN) Urine Bacteria Few/hpf (NONE-FEW) Urine Hyaline Casts None/lpf (NONE) Urine Granular Casts None seen (NONE SEEN) Urine Waxy Casts None seen (NONE SEEN) Urine Red Blood Cell Casts None seen (NONE SEEN) Urine White Blood Cell Casts None seen (NONE SEEN) Urine Mucus Present (None Seen) Urine Trichomonas None seen (NONE SEEN) Urine Yeast None (NONE SEEN) Urinalysis Comment None Urine Culture Reflexed Not indicated Plan Impression Patient chart reviewed, patient interviewed and anesthestic plan with risks, benefits, and alternatives discussed, and informed consent obtained. ASA Physical Status: ASA2 Mod Systemic Disease Anesthetic Plan: GA Bene/Risks/Altern/Consents: Yes HP Complete Prior to Induction: Yes Evens Shields MD Jun 08, 2016 07:25
[2016-06-08] MEDS ORDERED: HYDROmorphone 1 mg/mL Inj IVPUSH PRN (07:30)
[2016-06-08] MEDS ORDERED: MetoCLOpramide 5 mg/mL 2 mL Inj IVPUSH PRN ×2 (07:30→10:05)
[2016-06-08] MEDS ORDERED: fentaNYL-PF 50 mCg/mL 2 mL Inj IVPUSH PRN (07:30)
[2016-06-08] MEDS ORDERED: Dexamethasone 4 mg/mL Inj IVPUSH PRN (07:30)
[2016-06-08] MEDS ORDERED: Phenylephrine 10,000 mCg/mL Inj IVPUSH PRN (07:30)
[2016-06-08] MEDS ORDERED: Ampicillin-Sulbactam Inj 3,000 MG in 0.9% Sodium Chloride 100 ML IV ONE (07:30)
[2016-06-08] MEDS ORDERED: EPHEDrine Sulfate 50 mg/mL Inj IVPUSH PRN (07:30)
[2016-06-08] MEDS ORDERED: Lactated Ringer's 1,000 ML IV ONE ×2 (07:33→09:08)
[2016-06-08] MEDS ORDERED: Bupivacaine-MPF 0.5% 30 mL Inj INFILTRATE ONE (08:15)
--- NOTE | 2016-06-08 09:26 | DRSVH ---
PROCEDURE: US ABDOMEN, LIMITED ([id number]) INDICATIONS: RUQ TECHNIQUE: Real-time focused scanning was performed of the abdomen, with image documentation. COMPARISON: [facility], CT, CT ANGIO CHEST PE, 06/07/2016, 20:45. FINDINGS: Multiple dependent gallstones and sludge are present. Gallbladder wall thickening measurin g 4.7 mm and there is mild wall edema. Trace pericholecystic fluid and sonographic Neves's sign. N o biliary dilatation. IMPRESSION: Cholelithiasis with gallbladder wall thickening and edema suggesting cholecystitis. Note: These findings are concordant with the preliminary interpretation. Dictated by: Tu PISANO Interpreted: Georgette Koroma MD on 06/08/2016 at 9:25 Transcribed by: BRENDA on 06/08/2016 at 9:26 Approved by: Georgette Koroma M.D. on 06/08/2016 at 16:51
--- NOTE | 2016-06-08 10:04 | PCM.SURGPO ---
Immediate Operative Note Date of Surgery: Jun 08, 2016 Pre Operative Diagnosis Acute Cholecystitis Post Operative Diagnosis Acute Cholecystitis with choledocholithiasis Procedure Laparoscopic Cholecystectomy with Intraoperative Cholangiogram Surgeon and Assistant Film Editor Surgeon: Kasandra Thomas MD Assistants: Ginny Gamboa, BENSON Priest, MS3 Findings Severe cholecystitis, choledocholithiasis on IOC Complications There were no periprocedural complications identified. Surgical Specimen Removed: Yes Specimen sent to Pathology: Yes Anesthetic Administered: GA Grafts, Implants: None Output, Estimated Blood Loss: 20 Blood Admin during surgery: No Attending Statement Compliance Representative listed was medically necessary for the successful completion of the operation Kasandra Thomas MD Jun 08, 2016 10:04
--- NOTE | 2016-06-08 10:08 | DRSVH ---
PROCEDURE: X-RAY OPERATIVE CHOLANGIOGRAM ([id number]) INDICATIONS: CHOLANGIOGRAM COMPARISON: [facility], CT, CT ABD PELVIS W CON, 06/07/2016, 20:45. [facility] al, US, ABDOMEN LTD, 06/07/2016, 20:51. FINDINGS: Biliary ducts: The surgeon injected contrast into the biliary ducts after cannulation of the cystic duct stump. Visualized intra- and extrahepatic bile ducts are normal in caliber, without strictures. Several intraluminal filling defects seen in the distal common bile duct.. No evidence for iatroge gayla ductal injury. Duodenum: Contrast flows promptly through the sphincter of Oddi into the duodenum, which appears nor mal in caliber. IMPRESSION: 1. Distal common bile duct intraluminal filling defect suspicious for retained stones and/or tumefact collins sludge. If indicated ERCP or MRCP could be performed. 2. Extravasation of contrast and cannulation site. Dictated by: Tu PISANO Interpreted: Georgette Koroma MD on 06/08/2016 at 10:07 Transcribed by: BRENDA on 06/08/2016 at 10:08 Approved by: Georgette Koroma M.D. on 06/08/2016 at 16:46
--- NOTE | 2016-06-08 10:15 | PCM.ANEP1 ---
Post Anesthesia Phase 1 PACU Phase 1 Assessment Date of Service: Jun 08, 2016 Vital Signs 37.2, 149/91, 115, 20, 98% Vital Signs Date Time Temp Pulse Resp B/P Pulse Ox O2 Delivery O2 Flow Rate FiO2 06/08/16 05:39 36.4 95 18 128/76 97 Room Air Level of Alertness: Awake, talking CONNOLLY's with Equal Strength: Yes Pain: No Pain Scale Score: 0 Nausea or Vomiting: No Oxygen Delivery: Simple Mask Lungs: Clear to Auscultation Dermatome Level: Full Sensation Summary UNEVENTFUL GA Evens Shields MD Jun 08, 2016 10:15
--- NOTE | 2016-06-08 10:15 | PCM.ANEP2 ---
Post Anesthesia Evaluation ASA/CMS Post Anesthesia VS in Patient's Normal Range?: Yes Resp Stable; Airway Patent?: Yes CV Function & Hydration Stable: Yes Mental Status Recovered?: Yes Pain control Satisfactory?: Yes N/V Control Satisfactory?: Yes Evens Shields MD Jun 08, 2016 10:15
--- NOTE | 2016-06-08 11:10 | NUR ---
Social Work Note: Initial Assessment Attempt Data & Assessment: EMR reviewed. Patient is a 61 year old male admitted on 06/08/2016 for Acute cholecystitis. Pt has [employer] for insurance coverage and goes to [facility] for primary care. Pt lives on [facility]. Nursing Education Consultant attempted to see patient and complete Initial Assessment, but the patient is in surgery. Plan: SW to continue to follow patient and assist with discharge planning needs. Vandana Michael LMSW, ACM
[2016-06-08] MEDS: Dextrose 5% 0.45% NaCl 1,000 ML IV SCH (11:20)
[2016-06-08] MEDS ORDERED: 0.9% Sodium Chloride 250 ML ONE (13:47)
[2016-06-08] MEDS: Ampicillin-Sulbactam Inj 3,000 MG in 0.9% Sodium Chloride 100 ML IV SCH ×2 (13:54→19:49)
[2016-06-08 14:50] LABS: BASOPHILS % (AUTO) 0.3 % (0-3); EOSINOPHILS % (AUTO) 0.1 % (0-5); MONOCYTES % (AUTO) 5.7 % (4-12); Mean Corpuscular Hemoglobin 32.9 pg (27.0-35.0); Mean Corpuscular Volume 100.2 fL (81-100); NEUTROPHILS % (AUTO) 79.9 % (40-74); Platelet Count 248 bil/L (150-400)
--- NOTE | 2016-06-08 16:08 | OP ---
[address] [address] OPERATIVE REPORT PATIENT: MISTI STEVENS : 1955 MR#: [id number] ADMIT: 06/08/2016 JOB ID: [id number] DATE OF SURGERY: 06/08/2016 PREOPERATIVE DIAGNOSIS(ES): Acute cholecystitis. POSTOPERATIVE DIAGNOSIS(ES): Acute cholecystitis with choledocholithiasis. SURGEON: Kasandra Thomas MD. GANG DRILL OPERATOR: CESAR Robert MS3. INDICATIONS: This is a 61-year-old gentleman with chronic pain issues who came in with severe chest and upper abdominal pain that started over the last couple of days. Acute cardiac and pulmonary etiologies were ruled out and CT showed inflamed gallbladder with ultrasound confirming gallstones and cholecystitis. After discussing the risks, benefits, and alternatives, he was brought to the operating room for a laparoscopic cholecystectomy with cholangiogram. PROCEDURE DETAILS: He was placed in supine position. Underwent smooth induction of general anesthesia. Abdomen was prepped and draped in the usual sterile fashion. Surgical time-out was undertaken using safety checklist, and all were in agreement. We entered the abdomen using the supraumbilical incision using open Eugenia technique. Placed a 12 mm port and then placed three 5 mm ports in the upper abdomen, two in the right upper quadrant and one in the epigastrium. The gallbladder was obviously inflamed with omentum stuck to it. I mobilized the omentum off and dissected the triangle of Calot anteriorly and posteriorly. He had some oozing but was able to control the cystic artery with a clip. After dissecting the cystic duct I felt like I did not have enough length mobilized for manipulation, so I actually decided to take the gallbladder down in a top-down fashion and placed an Endoloop around the infundibulum, made a cystic ductotomy, and obtained a cholangiogram. Cholangiogram showed normal anatomy but did show filling defects in the distal common bile duct that I could not clear out despite giving glucagon and intraductal lidocaine. At this point, I decided to go ahead and control the duct with two clips and an Endoloop and divided cystic duct and placed the gallbladder in an EndoCatch bag. I irrigated and suctioned out all fluid from the right upper quadrant, extracted the gallbladder through the umbilical port site, and evacuated the pneumoperitoneum. Closed the umbilical fascia with [id number] 0-Vicryl suture. Skin was closed with 4-0 Monocryl. Steri-Strips and sterile dressing were applied. Patient was recovered from anesthesia and was taken to the recovery room in stable condition.
--- NOTE | 2016-06-08 17:48 | NUR ---
Case Management: LETHA explained to patient at 1740, all questions answered. Signed original placed in chart, copy given to patient. Martina Rojas RN
--- NOTE | 2016-06-08 19:51 | NUR ---
Pain management Pt. having strong pain (9/10) after transfer from recovery. IV morphine administered, but did not seem to be effective. 1 mg dilaudid administered, which pt. reported to help him feel much more comfortable. Pt. reports his pain at 7/10 with treatment of 1 mg dilaudid q2 hours, but pt. is frequently falling asleep, and pt. denying pain being intolerable. Will continue to monitor.
[2016-06-09 01:09] VITALS: BP 152/99; PULSE 93; RESP 19; O2SAT 96
[2016-06-09] MEDS: Dextrose 5% 0.45% NaCl 1,000 ML IV SCH (02:45)
[2016-06-09] MEDS: Ampicillin-Sulbactam Inj 3,000 MG in 0.9% Sodium Chloride 100 ML IV SCH ×3 (03:34→14:30)
[2016-06-09] MEDS: Ondansetron 2 mg/mL 2 mL Inj IVPUSH PRN ×2 (03:40→13:11)
--- NOTE | 2016-06-09 04:17 | NUR ---
Pain/Emotional response Patient has complained of pain q 2hours . Pain medications administered q [address] Cote called for PO meds to be ordered. Oxycodone ordered and administered along with 200mg Motrin. Patient also complained of nausea and ondansetron IVP was administered. Patient started to cry around 0200. Patient stated he felt he could be having a panic attack. Patient stated that the unknown regarding his armand had him bothered to the point of crying. I asked patient if he felt the lack of beer could be causing his anxiety as the patient stated during his assessment that he drinks 1-2 beers every night. Patient denied any dependence on alcohol. Patient reassured and pain medications schedule was written on white board. VSS. Abdomen guarded. Call light within reach. Care continues.
[2016-06-09 06:13] VITALS: BP 152/84; PULSE 104; RESP 18; O2SAT 96
[2016-06-09 07:52] LABS: BASOPHILS % (AUTO) 0.5 % (0-3); EOSINOPHILS % (AUTO) 1.6 % (0-5); MONOCYTES % (AUTO) 12.2 % (4-12); Mean Corpuscular Hemoglobin 32.9 pg (27.0-35.0); Mean Corpuscular Volume 99.5 fL (81-100); Platelet Count 247 bil/L (150-400)
[2016-06-09] MEDS ORDERED: Thiamine Inj 100 MG, Folic Acid Inj 1 MG, Magnesium Sulfate 50% Inj 2 GM, Multivitamins... IV ONE ×5 (08:25)
--- NOTE | 2016-06-09 09:14 | PCM.PNSURG ---
Subjective Date of Service: Jun 09, 2016 Visit Information: Acute Cholecyctitis, Choledocholithiasis Surgery/Surgery Date LAP MARY W/CHOLANGIOGRAMS 06/08/16 Post-Op Day # 1 Date of Admission: Jun 08, 2016 at 00:59 Hospital Day # 2 Subjective: No sleep overnight, inadequate pain control Objective Vital Sign- Last 8 Hours Date Time Temp Pulse Resp B/P Pulse Ox O2 Delivery O2 Flow Rate FiO2 06/09/16 06:13 36.8 104 18 152/84 96 Room Air 06/09/16 01:09 36.9 93 19 152/99 96 Room Air Intake and Output- Last 8 Hour 06/09/16 Cumulative From/Thru 07:00 06/07/16 18:56 - 06/09/16 06:37 Intake Total 1238 ml 4371 ml Output Total 900 ml 1030 ml Balance 338 ml 3341 ml Intake Oral 520 ml 520 ml IV Total 718 ml 3851 ml Output Urine Total 900 ml 1000 ml Estimated Blood Loss 30 ml Abdomen: Soft, Other (dressings dry) Result Diagram: 06/09/16 0630 06/09/16 0630 Assessment & Plan Impression Choledocholithiasis with rising LFTs concerning Problems: Plan ERCP coverage not available at [facility] this week Called Vandana Emanuel Planning transfer for ERCP NPO Continue Unasyn, Pain medications Possible Alcohol withdrawal - Kasandra Christensen MD Jun 09, 2016 09:14
[2016-06-09 09:58] VITALS: PULSE 96
[2016-06-09 10:25] VITALS: BP 145/88; PULSE 105; RESP 18; O2SAT 99
[2016-06-09] MEDS ORDERED: MIRT15TA PO (12:58)
[2016-06-09 13:06] VITALS: BP 153/93; PULSE 93; RESP 18; O2SAT 93
[2016-06-09] MEDS ORDERED: BUSP15TA3 PO (13:24)
[2016-06-09] MEDS ORDERED: MIRT30TA6 PO (13:24)
[2016-06-09] MEDS ORDERED: QUET400T35 PO (13:30)
--- NOTE | 2016-06-09 14:34 | NUR ---
Case Management: IMM given and explained to pt at 14:25. Yuli HELLERRN
--- NOTE | 2016-06-09 16:26 | PCM.DISURG ---
Surgical Discharge Instruction Date of Service Jun 09, 2016 Dates of Hospitalization Date of Hospital Admission Jun 08, 2016 at 00:59 Providers Admitting Physician: Kasandra Thomas MD [facility]: Kasandra Thomas MD Discharge Diagnosis Post Operative diagnosis Acute Cholecystitis with choledocholithiasis s/p Lap Cholecystectomy with cholangiogram Diet Discharge Diet: Other (NPO) Activity Discharge Activity-General: Be up and about Dressing and Incisional Care Dressing Care: Remove outer dressing after 24 hrs Hygiene: May shower Follow Up Plan Follow Up Plan Transferring to [facility] for ERCP Kasandra Thomas MD Jun 09, 2016 16:26
--- NOTE | 2016-06-09 18:26 | DIS ---
[address] [address] DISCHARGE SUMMARY PATIENT: MISTI STEVENS : 1955 MR#: [id number] ADMIT: 06/08/2016 JOB ID: [id number] DIS: 06/09/2016 SUMMARY DIAGNOSIS: Acute cholecystitis and choledocholithiasis. OTHER DIAGNOSES: 1. Obesity. 2. Chronic back pain. 3. Possible alcohol withdrawal. HPI & Hospital course: The patient is a 61-year-old gentleman with chronic pain who came with severe chest and upper abdominal pain. He was initially worked up for acute cardiac and pulmonary etiology with a CT scan and a CT abdomen and pelvis which showed cholecystitis. He then had an ultrasound. His preoperative liver function tests were normal. I performed a laparoscopic cholecystectomy with intraoperative cholangiogram on June 08, 2016 on the same day of admission, at which time, I found choledocholithiasis. I controlled the cystic duct stump with two clips and an Endoloop. I then monitored him overnight with serial liver function tests. The liver function tests on June 09, 2016 showed bilirubin going up to 2.9 from 2.5, prompting me to seek help for ERCP. Because the gastroenterologists were not available here at [facility], I discussed the case with [facility] and talked to the hospitalist, Dr. Mamie Barrera who kindly accepted the request for transfer. His home medications are: 1. Buspirone 30 mg p.o. b.i.d. 2. Mirtazapine 60 mg p.o. every night. 3. Morphine 50 mg p.o. b.i.d. 4. Ondansetron 4 mg four times a day p.r.n. nausea. 5. Oxycodone 5 mg p.o. q.4 h. p.r.n. pain. 6. Quetiapine 200 mg p.o. at midnight. Medications currently in the hospital are: 1. Morphine 1-4 mg IV q.2 h. p.r.n. pain. 2. Unasyn 3000 mg q.6 h. hours. DISCHARGE INSTRUCTIONS: I asked the patient to remove his outer bandage in 24 hours and he is going to stay n.p.o. in anticipation of ERCP to be performed at [facility]. [facility]
--- NOTE | 2016-06-09 19:42 | NUR ---
Transfer Patient was transferred to [facility] for ERCP procedure. Patient transported BLS. Report was called to Lexi at admissions there. Patient with continued pain t/o day medicated with morphine. Patient on CIWA protocal and medicated with valium as indicated.
[2016-06-09] MEDS ORDERED: BusPIRone 15 mg Dividose Tablet PO SCH (20:30)
[2016-06-10] MEDS ORDERED: Multivit-Miner-Folic Acid-Iron Tablet PO SCH (08:30)
[2016-06-10] MEDS ORDERED: Thiamine Inj 100 MG in 0.9% Sodium Chloride 100 ML IV SCH (08:30)
--- NOTE | 2016-06-10 11:25 | PATH ---
SURGICAL PATHOLOGY Attending Physician:Kasandra Thomas MD CASE STATUS: Signed Out PATIENT NAME: MISIT STEVENS PID: [id number] : 1955 DATE COLLECTED:06/08/2016 16:53 SPECIMEN: Gallbladder CLINICAL HISTORY: ACUTE CHOLECYSTITIS 1). GALLBLADDER FINAL DIAGNOSIS: 1.GALLBLADDER: CHOLELITHIASIS WITH ASSOCIATED CHRONIC CHOLECYSTITIS. ICD10 CODE K80.66 GROSS DESCRIPTION: The specimen is received in one formalin filled container labeled with the patient's name, sublabeled "gallbladder" and consists of an opened 9.0 x 4.0 x 2.5 CM gallbladder. The serosa is smooth. The wall is 0.2-0.6 CM in thickness. The mucosa is a dark pink to rodriguez in color. The lumen contains a light yellow ngo to espinal-rodriguez friable material and approximately 10 dark brown-black rough calculi which range in size from 0.2-0.5 CM in greatest dimension. Multiple teleservices representative sections are submitted in 2 cassettes. 06/08/2016 DAC MICRO DESCRIPTION: See diagnosis. ICD-9 CODES: CPT CODES: 1: 88356 Electronically Signed Out Blaze Zazueta MD [facility] [address], [place] [address] Technical component performed at [facility], [facility] [address], [place], [address]
[2016-09-16] MEDS ORDERED: QUET300T PO (10:46)
[2016-09-16] MEDS ORDERED: ATEN25TA PO (10:46)
[2016-09-16] MEDS ORDERED: OMEP20TA86 PO (10:46)
[2016-09-16] MEDS ORDERED: CHOL500050 PO (10:46)
== END 2016-06-09 17:30 | disposition short-term general hospital (02) | DRG 418 ==
LOC: SED 18:35 → OBSVTOIN 06-08 00:59 → OSC 06-08 00:59
PROVIDERS: ADMIT Student in an Organized Health Care Education/Training Program; ATTEND Student in an Organized Health Care Education/Training Program
PROC: BF101ZZ Fluoroscopy of Bile Ducts using Low Osmolar Contrast (ICD-10-PCS; 2016-06-08)
PROC: 0FT44ZZ Resection of Gallbladder, Percutaneous Endoscopic Approach (ICD-10-PCS; principal; 2016-06-08 07:30)
DX: K80.42 Calculus of bile duct with acute cholecystitis without obstruction (principal); F10.239 Alcohol dependence with withdrawal, unspecified; I10 Essential (primary) hypertension; F17.210 Nicotine dependence, cigarettes, uncomplicated; Z96.643 Presence of artificial hip joint, bilateral; G89.29 Other chronic pain; M54.9 Dorsalgia, unspecified; E66.9 Obesity, unspecified; Z68.30 Body mass index [BMI] 30.0-30.9, adult; R94.5 Abnormal results of liver function studies

== ENCOUNTER 2016-10-30 18:20 | Emergency (ER) | payer MEDICARE ==
[~2016-10-30] VITALS: Ht 175.3 cm; Wt 90.9 kg
[~2016-10-30 18:20] MED LIST changes: +ATEN25TA PO; +CHOL500050 PO; -MORP-32 PO; +OMEP20TA86 PO; -ONDA-53 PO; -OXYC5TAB72 PO; -PRAZ2CAP2 PO; -QUET200T PO; +QUET300T PO; +QUET400T35 PO; -TAMS0.4C98 PO; -TIZA2TAB3 PO; -bupropion PO; -mirtazapine PO; -morphine PO
[2016-10-30 18:38] VITALS: BP 153/89; PULSE 118; RESP 20; O2SAT 96
[2016-10-30 19:33] VITALS: BP 136/93; PULSE 107; RESP 20; O2SAT 96
--- NOTE | 2016-10-30 20:14 | ED.REPORT ---
HPI-Abd Pain M 40 and Over Date of Service Oct 30, 2016 ED Provider: Dr. Kirkland Pt is a 61 year old male with a hx of cholecystectomy May 2016 and subsequent ERCP for biliary duct stone. Presenting to the ED via EMS complaining of right sided hot abdominal pain onset last night. Associated symptoms include nausea, vomiting and diarrhea. Denies SOB, fever, bloody stool, hematuria, or dysuria. The pain is exacerbated by eating. He denies hx of alcohol withdrawal, and states that he drank one beer yesterday. [facility] report shows that he filled 40 mg hydrocodone on 10/17 which he takes for chronic hip pain. He says he hasn't had any for about a week. Nursing Notes Stated Complaint: ABDOMINAL PAIN Chief Complaint: Male Abdominal Pain Nursing Notes Reviewed: Yes Allergies: Coded Allergies: No Known Allergies (Verified , 06/08/16) Scheduled Atenolol (Atenolol) 25 Mg Tablet 25 MG PO DAILY Omeprazole (Omeprazole) 20 Mg Tablet.dr 20 MG PO DAILY Ondansetron ODT (Ondansetron ODT) 4 Mg Tab.rapdis 4 MG PO QID Pantoprazole DR (Protonix) 20 Mg Tablet 20 MG PO BID Quetiapine Fumarate (Quetiapine Fumarate) 400 Mg Tablet 200 MG PO HS Quetiapine Fumarate (Seroquel) 300 Mg Tablet 300 MG PO HS Miscellaneous Medications Cholecalciferol (Vitamin D3) (Vitamin D) 50,000 Unit Capsule 50,000 UNIT PO General Time Seen by MD: 20:14 Chief Complaint Abdominal pain Hx Obtained From: Patient, EMS Arrived By: Ambulance Sudden in Onset?: Yes Onset Occurred: Yesterday Context of Onset: Eating Symptom Duration: Since onset Progression since Onset: Constant Location: : Epigastric: RLQ: RUQ Quality: Burning, Painful Severity: Current: Moderate Severity: Maximum: Severe Recent Healthcare: No recent doctor visit, No recent hospitalization Similar Sx Previous: Yes Past Medical History Past Medical History Chronic back pain Chronic headaches Past Surgical History Reports: Cholecystectomy Reports: Hip replacement Smoking History Current Every Day Smoker Social History Alcohol Use: 1-3 per day Ambulatory Status Independent Review of Systems Constitutional: Denies: Chills, Fever Respiratory: Denies: Shortness of breath GI: Reports: Abdominal pain, Diarrhea, Nausea, Vomiting, Denies: Bloody/tarry stool Male: Denies Dysuria, Denies Hematuria Complete sys rev & neg: except as marked. Physical Exam Initial Vital Signs Vital Signs (First) Date Time Temp Pulse Resp B/P Pulse Ox O2 Delivery O2 Flow Rate FiO2 10/30/16 18:38 36.7 118 20 153/89 96 Room Air Initial VS: Reviewed Head / Eyes: Atraumatic, Normocephalic, PERRL ENT: Mucous membranes moist, Conjunctiva normal, No scleral icterus Extremities: Vascular intact, Neuro intact, No swelling, No tenderness Skin: Warm, Dry, No cyanosis Neurologic: Alert, Oriented, Nonfocal Psychiatric: Mood/affect normal, Behavior normal, Normal thought content General/Constitutional: Awake, Alert Tremulous Respiratory / Chest: Atraumatic, Breath sounds NL, Breath sounds = bilat, No respiratory distress Cardiovascular: Regular rhythm, Heart sounds NL, No gallop, No murmurs, No rubs , Peripheral circulation NL Heart Rate / Rhythm: Positive: Tachycardia Abdomen: Atraumatic Tenderness/Guarding/Rebound: Positive: Tender RLQ... (Moderate), Tender RUQ... (Moderate), Tender epigastric Back: Atraumatic Left CVA tenderness Interpretation & Diagnostics Lab Results Interpretation Result Diagram: 10/30/16193210/30/161932 Test 10/30/16 19:33 10/30/16 23:10 White Blood Count 8.8th/mm3 (3.8-10.1) Red Blood Count 4.91mil/mm3 (4.40-5.80) Hemoglobin 16.3g/dL (13.8-17.2) Hematocrit 48.0% (41.0-50.0) Mean Corpuscular Volume 97.8fL (81-100) Mean Corpuscular Hemoglobin 33.2pg (27.0-35.0) Mean Corpuscular Hemoglobin Concent 34.0% (32.0-37.0) Red Cell Distribution Width 14.3% (12.3-15.4) Platelet Count 323bil/L (150-400) Neutrophils (%) (Auto) 53.4% (40-74) Lymphocytes (%) (Auto) 35.1% (14-46) Monocytes (%) (Auto) 8.0% (4-12) Eosinophils (%) (Auto) 1.8% (0-5) Basophils (%) (Auto) 1.5% (0-3) Hold Purple Top Tube Received (Received) Hold Blue Top Tube Received (Received) Sodium Level 138mEq/L (134-144) Potassium Level 3.6mEq/L (3.5-5.2) Chloride Level 99mEq/L (97-108) Carbon Dioxide Level 20mmol/L (18-29) Blood Urea Nitrogen 11mg/dL (6-24) Creatinine 0.79mg/dL (0.76-1.27) Estimat Glomerular Filtration Rate 107mL/min (>59) Glucose Level 108mg/dL (60-99) Lactic Acid Level 2.0mmol/L (0.4-2.0) Calcium Level 9.2mg/dL (8.5-10.1) Magnesium Level 2.3mg/dL (1.6-2.6) Total Bilirubin 0.4mg/dL (0.0-1.2) Aspartate Amino Transf (AST/SGOT) 18U/L (0-50) Alanine Aminotransferase (ALT/SGPT) 12U/L (0-44) Alkaline Phosphatase 87U/L (25-160) Total Protein 8.0g/dL (6.4-8.4) Albumin 4.2g/dL (3.4-5.0) Lipase 16U/L (13-60) Hold [place] Top Tube Received (Received) Hold Strange Top Tube Received (Received) Urine Color Yellow (YELLOW) Urine Appearance Clear (CLEAR,HAZY) Urine pH 7.0 (5.0-8.0) Urine Specific Julian >1.050 (1.003-1.035) Urine Protein Negativemg/dL (NEG,TRACE) Urine Glucose (UA) Negativemg/dL (NEGATIVE) Urine Ketones Negativemg/dL (NEGATIVE) Urine Occult Blood Negative (NEGATIVE) Urine Nitrite Negative (NEGATIVE) Urine Bilirubin Negative (NEGATIVE) Urine Urobilinogen Normalmg/dL (NORMAL) Urine Leukocyte Esterase Negative (NEGATIVE) Urine RBC 0-2/hpf (0-2) Urine WBC 0-5/hpf (0-5) Urine Epithelial Cells None/hpf (NONE-MOD) Urine Crystals Oxalic acid crystals (NONE Urine Bacteria None/hpf (NONE-FEW) Urine Hyaline Casts None/lpf (NONE) Urine Granular Casts None seen (NONE SEEN) Urine Waxy Casts None seen (NONE SEEN) Urine Red Blood Cell Casts None seen (NONE SEEN) Urine White Blood Cell Casts None seen (NONE SEEN) Urine Mucus None seen (None Seen) Urine Trichomonas None seen (NONE SEEN) Urine Yeast None (NONE SEEN) Urinalysis Comment None Urine Culture Reflexed Not indicated ECG Interpretation Time: 21:29 Interpreted by: ED physician Normal ECG Interpretation: Normal ECG w/ rate of... (86), Normal sinus rhythm X-Ray Chest Interpretation Chest Xray Interpretation: IMPRESSION: No acute cardiopulmonary findings. Emphysematous change. Dictated by: Adelaide De M.D. on 10/30/2016 at 21:17 View: Portable, 1 view Interpretation / Wet Read by: Interpret - Radiologist CT Abd / Pelvis Interpretation IMPRESSION: 1. No acute intra-abdominal findings. Normal appendix. 2. Multilevel severe endplate depression, as before. Dictated by: Adelaide De M.D. on 10/30/2016 at 21:25 Study type: Abdominal CT IV contrast Interpretation / Wet Read by: Interpret - Radiologist Re-Eval/Medical Decision Med Decision/Clinical Course 61-year-old male with abdominal pain nausea vomiting diarrhea. He was tachycardic on arrival and somewhat tremulous. Her abdomen suspicions in the past she was withdrawn from alcohol the patient once again denied this and denied experiencing withdrawal symptoms in the past. He did admit to using alcohol recently though not today. Labs and imaging did not reveal serious acute illness. He was treated with IV fluids. Saline times ultimately 3 L, nausea and pain medications with good results. No evidence of pyelonephritis and ureteral stone appendicitis bowel obstruction or biliary tract disease tonight. Approximately 2 weeks ago he filled 44 mg Dilaudid tablets and is now out. Cannot provide a week, but it is possible that some of his symptoms are related to opiate withdrawal. Tachycardia has improved, it increased his Protonix from 20 mg once a day to 20 twice a day for possible reflux related symptoms. I provided a prescription for 10 additional Percocet to be used as needed for pain, and Zofran as needed for nausea and vomiting. Indications for return to emergency department reviewed Time of Eval: 22:56 Patient Status: Condition improved Re-Evaluation/Progress Note: Discussed CT, x ray and lab results and plan for urinalysis. Pt feeling slightly better. Time of Eval: 00:34 Patient Status: Condition improved Re-Evaluation/Progress Note: Pt able to keep fluids down but still complains of nausea. Pt still tremulous which he attributes to his abdominal and back pain. Discussed plan for discharge. Pt understands and agrees. Counseled Regarding: Diagnosis, Lab results, Need for follow-up, When/why to return to ED Discharge & Departure Primary Impression: Generalized abdominal pain Additional Impression: Nausea and vomiting Vomiting type: unspecified Vomiting Intractability: non-intractable Qualified Code: R11.2 - Nausea with vomiting, unspecified Disposition: Home Vital Signs - All Vital Signs Date Time Temp Pulse Resp B/P Pulse Ox O2 Delivery O2 Flow Rate FiO2 10/31/16 00:58 93 16 152/102 93 Room Air 10/30/16 20:40 99 16 151/79 97 Room Air 10/30/16 19:33 107 20 136/93 96 Room Air 10/30/16 18:38 36.7 118 20 153/89 96 Room Air )( All Prior VS Reviewed: Yes Condition: Improved Patient Instructions: Gastritis (ED) Additional Instructions: Emergency room visit today included interview, examination, labs, abdominal CT scan, and chest x ray; past records were reviewed. We did not find a serious cause for abdominal pain and vomiting today. Treatment with IV fluids, nausea and pain medications was helpful. I recommend eliminating your alcohol intake. Increase omeprazole to 20mg twice a day to medications. Ondansetron as needed for nausea and vomiting, oxycodone 1-2 every 4 hours as needed for pain. Follow up at the [facility] next week. Return to the ER if your symptoms worsen. [facility] Aidenibjuan carlos Attestation Portions of this note were transcribed by Vanessa Brown. I, Dr. Kirkland personally performed the history, physical exam and medical decision-making; I reviewed and confirmed the accuracy of the information in the transcribed note. Signed by : Inna Domingo, 10/30/2016. copies to: [facility] Blaze Kirkland MD Oct 30, 2016 20:14 VANESSA BROWN Oct 30, 2016 20:26
[2016-10-30] MEDS ORDERED: 0.9% Sodium Chloride 1,000 ML IV ONE ×2 (20:16→20:45)
[2016-10-30 20:30] LABS: BASOPHILS % (AUTO) 1.5 % (0-3); EOSINOPHILS % (AUTO) 1.8 % (0-5); Mean Corpuscular Hemoglobin 33.2 pg (27.0-35.0); Mean Corpuscular Volume 97.8 fL (81-100); NEUTROPHILS % (AUTO) 53.4 % (40-74); Platelet Count 323 bil/L (150-400)
[2016-10-30 20:39] LABS: Magnesium 2.3 mg/dL (1.6-2.6)
[2016-10-30] MEDS: Ondansetron 2 mg/mL 2 mL Inj IVPUSH PRN ×2 (20:39→23:04)
[2016-10-30 20:40] VITALS: BP 151/79; PULSE 99; RESP 16; O2SAT 97
[2016-10-30] MEDS: HYDROmorphone 1 mg/mL Inj IVPUSH PRN ×2 (20:42→23:07)
--- NOTE | 2016-10-30 21:19 | DRSVH ---
PROCEDURE: X-RAY CHEST ONE VIEW, PORTABLE ([id number]) INDICATIONS: upper abd pain, tachycardia TECHNIQUE: One view of the chest was acquired. COMPARISON: [facility], CR, XR CHEST 1VW (PORTABLE), 06/07/2016, 18:58. FINDINGS: Surgical changes and devices: None. Lungs and pleura: No pleural effusions or pneumothorax. Lungs are clear. The lung volumes are larg e and the diaphragms are flattened suggesting emphysema. Mediastinum: Mediastinal contours appear normal. Heart size is normal. Bones and chest wall: No suspicious bony lesions. Overlying soft tissues appear unremarkable. IMPRESSION: No acute cardiopulmonary findings. Emphysematous change. Dictated by: Adelaide De M.D. on 10/30/2016 at 21:17 Approved by: Adelaide De M.D. on 10/30/2016 at 21:17
--- NOTE | 2016-10-30 21:32 | DRSVH ---
PROCEDURE: CT ABDOMEN AND PELVIS WITH CONTRAST ([id number]) INDICATIONS: abdominal pain and tachycardia TECHNIQUE: After the administration of intravenous contrast, 5 mm thick sections acquired from the diaphragm to the symphysis. 5 mm coronal and sagittal reformats were acquired. For radiation dose reduction, the following was used: automated exposure control, adjustment of mA and/or kV according to patient fletcher rangel. COMPARISON: [facility], CT, CT ABD PELVIS W CON, 06/07/2016, 20:45. FINDINGS: Image quality: Excellent. ABDOMEN: Lung bases: Lung bases are clear. Heart size is normal. Solid organs: Liver and spleen are normal in size and enhancement. Gallbladder is not visualized an d may be surgically absent. Biliary system is non dilated. Pancreas enhances normally. No adrenal nodules. Kidneys demonstrate normal size and enhancement, without hydronephrosis. Peritoneum and bowel: Bowel loops demonstrate normal wall thickness and caliber. The appendix is th in walled and gas filled. There are scattered sigmoid diverticula. No evidence for diverticulitis. No free fluid or air. Nodes and vessels: No retroperitoneal or mesenteric adenopathy by size criteria. Aorta and inferior vena cava are normal in size. There are scattered atheromatous calcifications throughout the aorta and iliac arteries bilaterally. Miscellaneous: No ventral hernias. PELVIS: Genitourinary: Bladder wall thickness is normal. Miscellaneous: No inguinal hernias or adenopathy. Bones: There is extensive endplate depression of the thoracolumbar spine. These findings are similar in extent to the CT dated 06/07/16 IMPRESSION: 1. No acute intra-abdominal findings. Normal appendix. 2. Multilevel severe endplate depression, as before. Dictated by: Adelaide De M.D. on 10/30/2016 at 21:25 Approved by: Adelaide De M.D. on 10/30/2016 at 21:31
[2016-10-30 23:22] LABS: APPEARANCE,URINE CLEAR (CLEAR,HAZY); COLOR,URINE YELLOW (YELLOW)
[2016-10-30 23:23] LABS: OCCULT BLOOD,URINE NEGATIVE (NEGATIVE); UROBILINOGEN,URINE NORMAL (NORMAL)
[2016-10-31] MEDS ORDERED: Pantoprazole 40 mg ER24 Tablet PO ONE (00:45)
[2016-10-31] MEDS ORDERED: _Ondansetron ODT 4 mg Tablet PO PRN (00:45)
[2016-10-31] MEDS ORDERED: 0.9% Sodium Chloride 1,000 ML IV ONE (00:45)
[2016-10-31] MEDS ORDERED: _oxyCODONE/APAP 5-325 mg Tablet PO PRN (00:50)
[2016-10-31] MEDS: Ondansetron 2 mg/mL 2 mL Inj IVPUSH PRN (00:56)
[2016-10-31 00:58] VITALS: BP 152/102; PULSE 93; RESP 16; O2SAT 93
[2016-10-31] MEDS ORDERED: ONDA4TAB12 PO (02:11)
[2016-10-31] MEDS ORDERED: PANT20T PO (02:11)
[2016-10-31 04:30] VITALS: BP 131/77; PULSE 105; RESP 16; O2SAT 99
[2016-10-31 06:22] VITALS: BP 122/64; PULSE 101; RESP 14; O2SAT 96
[2016-11-02] MEDS ORDERED: CHOL500051 PO (13:50)
== END 2016-10-31 06:15 | disposition home or self-care (01) ==
LOC: EDBD 18:20 → SED 18:20 → EDUNIT# 18:20 → SED 10-31 06:15
DX: R10.84 Generalized abdominal pain (principal); R11.2 Nausea with vomiting, unspecified; F17.200 Nicotine dependence, unspecified, uncomplicated; Z90.49 Acquired absence of other specified parts of digestive tract
CPT/HCPCS: 36415; 71010; 74177; 80053; 81000; 83605; 83690; 83735; 85025; 93005; 96361; 96374; 96375; 96376; 99285; J1170; J2405; J7030; Q9967